=== PATIENT | male | born 1925 | race Caucasian/White ===

== ENCOUNTER 2017-07-14 14:20 | Inpatient (IN) | payer OTHER ==
[~2017-07-14] VITALS: Ht 175.3 cm; Wt 79.3 kg
[2017-07-14] MEDS ORDERED: SODIUM CHLORIDE 0.9% 1000ML 1,000 ML IV STA (14:35)
[2017-07-14] MEDS ORDERED: OPTIRAY 320 IV PRN (14:45)
[2017-07-14 14:58] LABS: BASO % 0.1 %; BASO ABS # 0.02 K/uL (0-0.2); EOS % 0.3 %; EOS ABS # 0.04 K/uL (0-0.5); HEMATOCRIT 39.7 % (42-52); HEMOGLOBIN 13.3 g/dL (14.0-18.0); IG# 0.08 K/uL (0.00-0.02); LYMPH % 6.5 %; LYMPH ABS # 0.98 K/uL (1.2-3.4); MEAN CORPUSCULAR HEMOGLOBIN 28.5 pg (25-34); MEAN CORPUSCULAR HGB CONC 33.5 g/dl (32-36); MEAN PLATELET VOLUME 9.9 fL (7.4-10.4); MONO % 7.2 %; MONO ABS # 1.08 K/uL (0.11-0.59); NEUT % 85.4 %; NEUT ABS # 12.82 K/uL (1.4-6.5); PLATELET COUNT 337 K/uL (130-400); RED CELL DISTRIBUTION WIDTH CV 15.1 % (11.5-14.5); RED CELL DISTRIBUTION WIDTH SD 46.8 fL (36.4-46.3); WHITE BLOOD COUNT 15.02 K/uL (4.8-10.8)
[2017-07-14 15:17] LABS: ALBUMIN 2.5 gm/dl (3.4-5.0); ALT/SGPT 16 U/L (12-78); AST/SGOT 43 U/L (15-37); BLOOD UREA NITROGEN 27 mg/dl (7-18); CALCIUM 9.5 mg/dl (8.5-10.1); CARBON DIOXIDE 29 mmol/L (21-32); CREATININE 1.41 mg/dl (0.60-1.40); GLUCOSE 110 mg/dl (70-99); LIPASE 54 U/L (73-393); POTASSIUM 4.3 mmol/L (3.5-5.1); SODIUM 134 mmol/L (136-145)
[2017-07-14 15:20] LABS: ALKALINE PHOSPHATASE 134 U/L (45-117); TOTAL PROTEIN 7.6 gm/dl (6.4-8.2)
[2017-07-14] MEDS ORDERED: CETI10CH PO (16:40)
[2017-07-14] MEDS ORDERED: TIOT1SPR INH (16:40)
[2017-07-14] MEDS ORDERED: MELA3TAB PO (16:40)
[2017-07-14] MEDS ORDERED: TRMO2580 TOP (16:40)
[2017-07-14] MEDS ORDERED: [UNRECOGNIZED DRUG - CODE] PO (16:40)
[2017-07-14] MEDS ORDERED: ACET-1693 PO (16:40)
[2017-07-14] MEDS ORDERED: SIMV40TA2 PO (16:40)
[2017-07-14] MEDS ORDERED: SYMIN160 INH (16:40)
[2017-07-14] MEDS ORDERED: CALC500C70 PO (16:40)
[2017-07-14] MEDS ORDERED: ISOS60TA25 PO (16:40)
[2017-07-14] MEDS ORDERED: CEPH500C2 PO (16:40)
[2017-07-14] MEDS ORDERED: ESCI10TA17 PO (16:40)
[2017-07-14] MEDS ORDERED: CHOL100027 PO (16:40)
[2017-07-14] MEDS ORDERED: ATEN-173 PO (16:40)
[2017-07-14] MEDS ORDERED: PRLSR20 PO (16:40)
[2017-07-14] MEDS ORDERED: HYDCR25 TOP (16:40)
[2017-07-14] MEDS ORDERED: CARB1SOL8 OT (16:40)
--- NOTE | 2017-07-14 17:28 | Urology Consultation ---
History General Date of Service: Jul 14, 2017. Primary Care Physician: No Doctor, Assigned Pt seen a urologist before?: No History of Present Illness 89-year-old gentleman presents to the ER with abdominal pain and nausea and vomiting Denies significant voiding dysfunction at baseline On arrival, he had a bladder scan for greater than 650 cc pinpointed his pain to the suprapubic region After arrival in the ER, he has been unable to can void ER staff attempt catheter placement without success 5 Initial resistance was described as near the tip of the penis Laboratory Labs were reviewed and are within normal limits unless listed below. Labs are available in the chart and at [facility] Past History BPH, depression, high cholesterol, hypertension, other Past Surgical History: other Social History Hx Tobacco Use In Past Year?: No Allergies Coded Allergies: No Known Allergies (Unverified , 12/21/15) Medications Home Medications: Home Meds and Scripts Medications Dose Route/Sig Max Daily Dose Days Date Category Hydrocortisone 90 Appln/30 Gm Cr 1 Appln TOP DAILY 7 07/14/17 Reported Symbicort 160/4.5 Inhaler (Budesonide/Formoterol Fumarate) Aero 1 Puffs INH BID 07/14/17 Reported Tylenol (Acetaminophen) 325 Mg Tab 650 Mg PO PRN 07/14/17 Reported Keflex (Cephalexin Monohydrate) 500 Mg Cap 500 Mg PO BID 07/14/17 Reported Triamcinolone Acet 0.025% (Triamcinolone Acetonide (Topic) 0.025 % Oin 1 Appln TOP BID PRN 07/14/17 Reported Spiriva Respimat (Tiotropium [place]) 2.5 Mcg/Act Spr 2 Puff INH DAILY 07/14/17 Reported Zocor (Simvastatin) 40 Mg Tab 20 Mg PO QPM 07/14/17 Reported Prilosec (Omeprazole) 20 Mg Capcr 20 Mg PO BID 07/14/17 Reported Ensure Clear (Nutritional Supplements) 1 Liq Liq 1 Can PO BID 07/14/17 Reported Melatonin 3 Mg Tab 9 Mg PO QPM 07/14/17 Reported Imdur Ext Rel (Isosorbide Mononitrate) 60 Mg Ertab 30 Mg PO QAM 07/14/17 Reported Lexapro (Escitalopram Oxalate) 10 Mg Tab 10 Mg PO DAILY 07/14/17 Reported Vitamin D 1000 Unit (Cholecalciferol) 1,000 Unit Cap 1,000 Inter.unit PO DAILY 07/14/17 Reported Cetirizine Hcl 10 Mg Chw 10 Mg PO DAILY 07/14/17 Reported Debrox (Carbamide Peroxide (Otic)) 6.5 % Prema 5 Drops OT HS 07/14/17 Reported Os-Tu 500 Plus D (Calcium/Vitamin D) Tab 1 Tab PO DAILY 07/14/17 Reported Tenormin (Atenolol) 25 Mg Tab 25 Mg PO DAILY 07/14/17 Reported Inpatient Medications: Current Inpatient Medications Medications (Trade) Dose Ordered Sig/Micaela Route Start Time Stop Time Status Last Admin Dose Admin Ioversol (Optiray 320) 100 ml UD PRN IV 07/14/17 14:45 07/18/17 14:44 Review of Systems Review of Systems Constitutional: No see HPI, No fever, No chills, No frequent headaches, No weight loss, No problem reported Eyes: No see HPI, No blurred vision, No double vision, No eye pain, No loss of night vision, No problem reported Neurological: No see HPI, No dizzy, No passing out, No numbness/tingling, No seizures, No problem reported Endocrine: No see HPI, No excessive thirst, No too hot, No too cold, No tired/ sluggish, No problem reported Gastrointestinal: + abdominal pain Cardiovascular: No see HPI, No heart murmur, No chest pain, No angina, No irregular heartbeat, No palpitations, No swelling ankles/feet, No problem reported Respiratory: No see HPI, No shortness of breath, No wheezing, No coughing up blood, No chronic cough, No problem reported Skin: No see HPI, No rash, No boils, No dry skin, No problem reported Musculoskeletal: No see HPI, No joint pain, No neck pain, No back pain, No arthritis, No problem reported Blood / Lymphatic: No see HPI, No bleed easily, No bruise easily, No swollen glands, No problem reported Ears / Nose / Throat: No see HPI, No hearing loss, No sinus, No hoarse voice, No sore throat, No problem reported Psychologic / Mental: No see HPI, No nervous, No trouble remembering, No difficulty sleeping, No problem reported Male : + problem reported All Other Systems: Reviewed and Negative Physical Exam Vital Signs: Vital Signs Past 12 Hours Date Time Temp Pulse Resp B/P (MAP) Pulse Ox O2 Delivery O2 Flow Rate FiO2 07/14/17 17:10 68 18 156/63 99 Room Air 07/14/17 16:00 69 138/77 100 Room Air 07/14/17 15:35 61 16 131/54 98 Room Air 07/14/17 14:22 36.8 62 20 123/55 97 Room Air Physical Exam: General Appearance: no apparent distress Eyes: bilateral eyes pertinent finding (Patient blind) ENT: hearing grossly normal Neck: no adenopathy Respiratory/Chest: no respiratory distress, no accessory muscle use Cardiovascular: no edema Gastrointestinal: Bladder: palpable (Palpably distended bladder, tender to palpation), tender Renal: normal renal Hernia: absent hernia Genitourinary - Male: Urethral Meatus: normal urethral meatus Extremities: no pedal edema, no calf tenderness Neurologic/Psychiatric: alert Skin: warm/dry Lymphatic: no adenopathy Assessment & Plan Assessment & Plan Called to the ER after difficult Smith placement Nursing staff reports 5 trials prior to contacting me Upon arrival, I prepped the patient with Betadine and performed a sterile attempted catheterization Assistance was felt near the area of the prostate Attempted an 18 Finnish coud without success Then attempted a 5 Finnish open-ended catheter again without success At that time I aborted further blind passage attempts, and I converted to flexible cystoscopy. Flexible cystoscope was introduced at the urethral meatus, he was noted to have a striated appearance of the urethral mucosa suggestive of false passage beginning approximately 1 cm from the urethral meatus. There was no clear true lumen visible. At the end of this passage, there was a blind end with 2 punctate openings. I attempted to cannulate each of these with a sensor wire without success Additionally probed all the flaps on the anterior lateral and posterior surface of the wound appear to be than true urethra. After numerous attempts without success, I aborted this effort. I will plan to take him to the operating room for cystoscopy under anesthesia possible dilation possible DVIU possible SP tube placement Discussed the possibilities with the patient, consent was on the chart He is due to had a CT as part of his emergency room evaluation, presuming that his pain is simply from urinary retention, hopefully he will get immediate relief of his pain once we can drain his bladder
--- NOTE | 2017-07-14 18:19 | DIAGNOSTIC IMAGING REPORT ---
ABDOMEN AND PELVIS CT WITH IV CONTRAST CT DOSE: 656.92 mGy.cm HISTORY: Generalized abdominal pain and cramping. TECHNIQUE: Multiaxial CT images of the abdomen and pelvis were performed following the use of intravenous contrast. A dose lowering technique was utilized adhering to the principles of ALARA. COMPARISON STUDY: None. FINDINGS: Bilateral calcified pleural plaques. A 1.4 x 1.0 cm nodular density within the base of the lingula. There is also a 2.1 x 2.0 cm nodular density within the base of the right lower lobe. No pneumoperitoneum. No pneumatosis. Bilateral L5 spondylolysis. Multiple scattered patchy areas of sclerosis seen throughout the visualized osseous structures. This is most pronounced within the pelvis and sacrum. 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 The heart is mildly enlarged. Pacemaker wires are present. There is motion artifact throughout the abdomen. No definite hepatic or splenic masses. The adrenal glands are unremarkable. The pancreas is within normal limits. A few bilateral renal cysts with the largest on the right measuring 3.5 cm. There is an ectatic abdominal aorta. Portal/peripancreatic lymphadenopathy. Dominant lymph node measures 4.0 x 2.6 cm. This is located adjacent to the pancreatic head and second portion of the duodenum. The gallbladder appears unremarkable. There is a large heterogeneous mass at the deep pelvis which appears to be contiguous with the posterior aspect of the right prostate gland and obscures/obliterates the seminal vesicles. This mass measures approximately 8.2 x 5.9 cm. This results in mild left displacement of the rectum. There are few perirectal/presacral enlarged lymph nodes. These measure up to 2 cm and are consistent with metastatic disease. The prostate gland is enlarged measuring 6 cm in transverse diameter. Extensive calcification within the prostate gland. The bladder is severely distended and contains a few punctate foci of gas. Multiple punctate foci of gas within the periurethral location throughout the penis. This is consistent with urethral injury, likely due to prior catheter placement. There is associated moderate bilateral hydroureteronephrosis likely due to the bladder outlet obstruction from the enlarged prostate/pelvic mass. Mild bilateral perirectal edema due to the chronic obstruction. No definite bowel wall thickening or obstruction. IMPRESSION: 1. A large heterogeneous mass within the deep pelvis which is contiguous with the right posterior prostate gland and obscures/obliterates the seminal vesicles. This likely represents a prostate malignancy. There are few enlarged perirectal/presacral and periportal lymph nodes consistent with metastatic disease. 2. Multiple osteoblastic lesion seen throughout the visualized osseous structures consistent with metastatic disease. 3. There are 2 nodules within the lung bases at described above. This may also represent metastatic disease. 4. The large mass within the deep pelvis results in the apparent bladder outlet obstruction with associated bilateral hydronephrosis. 5. Multiple punctate foci of gas within the periurethral location throughout the penis. This is consistent with urethral injury, likely due to prior catheter placement. 6. Additional findings as described above. Electronically signed by: Rudy Norwood M.D. 07/14/2017 6:18 PM Dictated Date/Time: 07/14/2017 6:01 PM
[2017-07-14] MEDS ORDERED: ONDANSETRON INJ 2 MG/ML 2 ML VIAL IV STA (18:28)
[2017-07-14] MEDS ORDERED: MoRPHine SULFATE 4 MG/ML 1 ML CARP\\VIAL IV STA (18:28)
--- NOTE | 2017-07-14 19:02 | History and Physical ---
History & Physical Date & Time of Service: Jul 14, 2017 at 19:02 Chief Complaint: Bad Cramps, Vomiting Primary Care Physician: No Doctor, Assigned History of Present Illness Source: patient, family Patient is an 89-year-old male with past medical history of metastatic T-cell lymphoma, basal cell carcinoma, COPD, Symptomatic bradycardia S/P pacemaker, legally blind, GERD, BPH, HLP, Depression and other problems presents with history abdominal pain, nausea and vomiting, inability to urinate. Patient is a poor historian most of the history is obtained from the patient's daughter-in- law and from hospital records. As per the family patient has been complaining of abdominal pain associated with nausea and vomiting since 3 days duration. He states abdominal pain is suprapubic, left and right lower quadrant which is sharp cramping like, nonradiating, 9/10 intensity. Also reports having constipation since yesterday. Patient was having trouble urinating and complained of dysuria since today. Also had nausea and vomiting 4 times today. Patient family informed that patient has been having generalized weakness and he tires easily lately. He lost about 40-50 pounds in last 1 year. She follows with Dr. Natan castro for oncology and [facility] and is being planned to be started on chemotherapy. Denies any history of chest pain, SOB, dizziness, pedal edema, fever, chills, headache, blood in stools, hematuria. Past Medical/Surgical History Medical Problems: (1) Skin lesion of right lower limb Surgical Problems: (1) S/P hernia surgery Family History Brother:Prostate cancer Social History Smoking Status: Current Every Day Smoker Alcohol Use: none Drug Use: none Allergies Coded Allergies: No Known Allergies (Unverified , 12/21/15) Home Medications Scheduled Acetaminophen Tab (Tylenol), 650 MG PO PRN Atenolol (Tenormin), 25 MG PO DAILY Budesonide/Formoterol Fumarate (Symbicort 160/4.5 Inhaler ), 1 PUFFS INH BID Calcium/Vitamin D (Os-Tu 500 Plus D), 1 TAB PO DAILY Carbamide Peroxide (Otic) (Debrox), 5 DROPS OT HS Cephalexin Monohydrate (Keflex), 500 MG PO BID Cetirizine Hcl (Cetirizine Hcl), 10 MG PO DAILY Cholecalciferol (Vitamin D 1000 Unit), 1,000 INTER.UNIT PO DAILY Escitalopram (Lexapro), 10 MG PO DAILY Hydrocortisone (Hydrocortisone), 1 APPLN TOP DAILY Isosorbide Mononitrate Ext Rel (Imdur Ext Rel), 30 MG PO QAM Melatonin (Melatonin), 9 MG PO QPM Nutritional Supplements (Ensure Clear), 1 CAN PO BID Omeprazole (Prilosec), 20 MG PO BID Simvastatin (Zocor), 20 MG PO QPM Tiotropium [place] (Spiriva Respimat), 2 PUFF INH DAILY Scheduled PRN Triamcinolone Acetonide (Topic (Triamcinolone Acet 0.025%), 1 APPLN TOP BID PRN for ITCHY AREAS SCALP Review of Systems See HPI for pertinent positives & negatives. A total of 10 systems reviewed and were otherwise negative. Physical Exam Vital Signs Date Time Temp Pulse Resp B/P (MAP) Pulse Ox O2 Delivery O2 Flow Rate FiO2 07/14/17 18:22 69 16 160/67 95 Room Air 07/14/17 17:10 68 18 156/63 99 Room Air 07/14/17 16:00 69 138/77 100 Room Air 07/14/17 15:35 61 16 131/54 98 Room Air 07/14/17 14:22 36.8 62 20 123/55 97 Room Air General Appearance: no apparent distress, + thin, + pertinent finding ( Chronically ill-appearing) Head: normocephalic, atraumatic Eyes: normal inspection, PERRL, EOMI, sclerae normal, + pertinent finding ( Legally blind right greater than left) ENT: normal ENT inspection, + pertinent finding (Decreased hearing, uses hearing aids) Neck: supple, trachea midline Respiratory/Chest: chest non-tender, no respiratory distress, no accessory muscle use, + decreased breath sounds, + wheezing Cardiovascular: regular rate, rhythm, no edema, no murmur, + pertinent finding (Pacemaker on left side of the chest) Abdomen/GI: normal bowel sounds, soft, + tenderness (Suprapubic region, RLQ and LLQ) Back: normal inspection Extremities/Musculoskelatal: normal inspection, no pedal edema Neurologic/Psych: 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 II-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9 7.4-10.4 fL Neutrophils (%) (Auto) 85.4 % Lymphocytes (%) (Auto) 6.5 % Monocytes (%) (Auto) 7.2 % Eosinophils (%) (Auto) 0.3 % Basophils (%) (Auto) 0.1 % Neutrophils # (Auto) 12.82 1.4-6.5 K/uL Lymphocytes # (Auto) 0.98 1.2-3.4 K/uL Monocytes # (Auto) 1.08 0.11-0.59 K/uL Eosinophils # (Auto) 0.04 0-0.5 K/uL Basophils # (Auto) 0.02 0-0.2 K/uL RDW Standard Deviation 46.8 36.4-46.3 fL RDW Coefficient of Variation 15.1 11.5-14.5 % Immature Granulocyte % (Auto) 0.5 % Immature Granulocyte # (Auto) 0.08 0.00-0.02 K/uL Sodium Level 134 136-145 mmol/L Potassium Level 4.3 3.5-5.1 mmol/L Chloride Level 98 98-107 mmol/L Carbon Dioxide Level 29 21-32 mmol/L Anion Gap 8.0 3-11 mmol/L Blood Urea Nitrogen 27 7-18 mg/dl Creatinine 1.41 0.60-1.40 mg/dl Estimated GFR () 50.8 Estimated GFR (Non- 43.9 BUN/Creatinine Ratio 19.2 10-20 Random Glucose 110 70-99 mg/dl Calcium Level 9.5 8.5-10.1 mg/dl Total Bilirubin 0.8 0.2-1 mg/dl Direct Bilirubin 0.3 0-0.2 mg/dl Aspartate Amino Transf (AST/SGOT) 43 15-37 U/L Alanine Aminotransferase (ALT/SGPT) 16 12-78 U/L Alkaline Phosphatase 134 45-117 U/L Total Protein 7.6 6.4-8.2 gm/dl Albumin 2.5 3.4-5.0 gm/dl Lipase 54 73-393 U/L Diagnostic Radiology CT ABD: 1. A large heterogeneous mass within the deep pelvis which is contiguous with the right posterior prostate gland and obscures/obliterates the seminal vesicles. This likely represents a prostate malignancy. There are few enlarged perirectal/presacral and periportal lymph nodes consistent with metastatic disease. 2. Multiple osteoblastic lesion seen throughout the visualized osseous structures consistent with metastatic disease. 3. There are 2 nodules within the lung bases at described above. This may also represent metastatic disease. 4. The large mass within the deep pelvis results in the apparent bladder outlet obstruction with associated bilateral hydronephrosis. 5. Multiple punctate foci of gas within the periurethral location throughout the penis. This is consistent with urethral injury, likely due to prior catheter placement. 6. Additional findings as described above. Impression Assessment and Plan Diffuse Metastatic disease: Obstructive uropathy: CT ABD:bladder outlet obstruction with associated bilateral hydronephrosis and findings suggestive of metastatic disease Likely prostate malignancy: Admit in Tele Planned for suprapubic catheter placement Monitor renal function, Cr slightly increased from baseline pain control Urology consulted Metastatic T-cell lymphoma Basal cell carcinoma Planned for surgery for BCC Planned to be started on chemotherapy for T-cell lymphoma Follows with oncology in [place] Obtain old records from MD and his Oncologist Palliative care consulted to identify goals of care COPD: Denies SOB, had mild wheezing on exam Started on nebs Continue home inhalers Symptomatic bradycardia S/P pacemaker stable GERD: continue PPI HLP: continue statin Depression Continue Lexapro Skin lesion on back Secondary to scratching per family continue keflex DVT Px: SCDs for now as planned for procedure Code Status: Full Code as per my discussion with patient and family Patient's [id number] requests updates from physicians. Resuscitation Status VTE Prophylaxis Will order VTE Prophylaxis: Yes
[2017-07-14] MEDS ORDERED: ONDANSETRON INJ 2 MG/ML 2 ML VIAL IV PRN ×2 (19:45→21:30)
[2017-07-14] MEDS ORDERED: MoRPHine SULFATE 2 MG/ML CARP IV PRN (19:45)
[2017-07-14] MEDS ORDERED: ALBUT/IPRATROP 3MG/0.5MG NEB 3 ML VIAL INH PRN (19:45)
[2017-07-14] MEDS ORDERED: DOCUSATE SODIUM 100 MG CAP PO PRN (20:15)
--- NOTE | 2017-07-14 20:55 | EMERGENCY ROOM VISIT NOTE ---
History Report prepared by Sosaiblucero: Kayla Cuellar Under the Supervision of: Dr. Richard Carmona D.O. First contact with patient: 14:26 Chief Complaint: VOMITING Stated Complaint: BAD CRAMPS, VOMITING History of Present Illness The patient is an 89 year old male who presents to the Emergency Room with complaints of bilateral lower quadrant abdominal pain since yesterday. He describes the pain as feeling like cramps and rates his discomfort as a 9/10 in severity. He states he was constipated yesterday so he took a laxative, then developed diarrhea. He has not had a bowel movement since yesterday morning. He also complains of dysuria that began earlier today. The patient has been vomiting since this morning and states he has vomited 4 times today so far. He still has his gallbladder but his son believes he has undergone hernia surgery in the past. He denies any testicular pain. Pt denies headache, change in vision , fevers, chest pain, shortness of breath and melena. Source of History: patient Onset: yesterday Position: abdomen (RLQ, LLQ) Symptom Intensity: 9/10 Quality: cramping Timing: other (persistent) Associated Symptoms: + nausea, + vomiting, + diarrhea, + urinary symptoms, No fevers, No headache, No chest pain, No SOB, No melena Review of Systems See HPI for pertinent positives & negatives. A total of 10 systems reviewed and were otherwise negative. Past Medical & Surgical Medical Problems: (1) Metastatic malignant neoplasm to prostate (2) Obstructive uropathy Surgical Problems: (1) S/P hernia surgery Social History Smoking Status: Current Every Day Smoker Alcohol Use: none Drug Use: none Marital Status: Housing Status: lives with family Occupation Status: retired Current/Historical Medications Scheduled Acetaminophen Tab (Tylenol), 650 MG PO PRN Atenolol (Tenormin), 25 MG PO DAILY Budesonide/Formoterol Fumarate (Symbicort 160/4.5 Inhaler ), 1 PUFFS INH BID Calcium/Vitamin D (Os-Tu 500 Plus D), 1 TAB PO DAILY Carbamide Peroxide (Otic) (Debrox), 5 DROPS OT HS Cephalexin Monohydrate (Keflex), 500 MG PO BID Cetirizine Hcl (Cetirizine Hcl), 10 MG PO DAILY Cholecalciferol (Vitamin D 1000 Unit), 1,000 INTER.UNIT PO DAILY Escitalopram (Lexapro), 10 MG PO DAILY Hydrocortisone (Hydrocortisone), 1 APPLN TOP DAILY Isosorbide Mononitrate Ext Rel (Imdur Ext Rel), 30 MG PO QAM Melatonin (Melatonin), 9 MG PO QPM Nutritional Supplements (Ensure Clear), 1 CAN PO BID Omeprazole (Prilosec), 20 MG PO BID Simvastatin (Zocor), 20 MG PO QPM Tiotropium Goodman (Spiriva Respimat), 2 PUFF INH DAILY Scheduled PRN Triamcinolone Acetonide (Topic (Triamcinolone Acet 0.025%), 1 APPLN TOP BID PRN for ITCHY AREAS SCALP Allergies Coded Allergies: No Known Allergies (Unverified , 12/21/15) Physical Exam Vital Signs Date Time Temp Pulse Resp B/P (MAP) Pulse Ox O2 Delivery O2 Flow Rate FiO2 07/14/17 20:06 72 14 126/59 94 07/14/17 19:30 71 16 124/54 93 Room Air 07/14/17 19:00 67 136/57 91 Room Air 07/14/17 18:22 69 16 160/67 95 Room Air 07/14/17 17:10 68 18 156/63 99 Room Air 07/14/17 16:00 69 138/77 100 Room Air 07/14/17 15:35 61 16 131/54 98 Room Air 07/14/17 14:22 36.8 62 20 123/55 97 Room Air Physical Exam GENERAL: Sitting up in bed, alert, holding lower abdomen, well nourished, hard of hearing, non-toxic EYE EXAM: normal conjunctiva. OROPHARYNX: no exudate, no erythema, lips, buccal mucosa, and tongue normal and mucous membranes are moist NECK: supple, no nuchal rigidity, no adenopathy, non-tender LUNGS: Clear to auscultation. Normal chest wall mechanics HEART: no murmurs, S1 normal and S2 normal ABDOMEN: abdomen soft, tender to palpation in suprapubic, normo-active bowel sounds, no masses, no rebound or guarding. : Normal external genitalia, testicles nontender, no masses. BACK: Back is symmetrical on inspection and there is no deformity, no midline tenderness, no CVA tenderness. SKIN: no rashes and no bruising UPPER EXTREMITIES: upper extremities are grossly normal. LOWER EXTREMITIES: No pitting edema. NEURO EXAM: Normal sensorium, cranial nerves II-XII grossly intact, normal speech, no gross weakness of arms, no gross weakness of legs. Medical Decision & Procedures ER Provider Diagnostic Interpretation: A bladder scan shows 600 mL of urine. Radiology results as stated below per my review and the radiologist's interpretation: ABDOMEN AND PELVIS CT WITH IV CONTRAST CT DOSE: 656.92 mGy.cm HISTORY: Generalized abdominal pain and cramping. TECHNIQUE: Multiaxial CT images of the abdomen and pelvis were performed following the use of intravenous contrast. A dose lowering technique was utilized adhering to the principles of ALARA. COMPARISON STUDY: None. FINDINGS: Bilateral calcified pleural plaques. A 1.4 x 1.0 cm nodular density within the base of the lingula. There is also a 2.1 x 2.0 cm nodular density within the base of the right lower lobe. No pneumoperitoneum. No pneumatosis. Bilateral L5 spondylolysis. Multiple scattered patchy areas of sclerosis seen throughout the visualized osseous structures. This is most pronounced within the pelvis and sacrum. 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 The heart is mildly enlarged. Pacemaker wires are present. There is motion artifact throughout the abdomen. No definite hepatic or splenic masses. The adrenal glands are unremarkable. The pancreas is within normal limits. A few bilateral renal cysts with the largest on the right measuring 3.5 cm. There is an ectatic abdominal aorta. Portal/peripancreatic lymphadenopathy. Dominant lymph node measures 4.0 x 2.6 cm. This is located adjacent to the pancreatic head and second portion of the duodenum. The gallbladder appears unremarkable. There is a large heterogeneous mass at the deep pelvis which appears to be contiguous with the posterior aspect of the right prostate gland and obscures/obliterates the seminal vesicles. This mass measures approximately 8.2 x 5.9 cm. This results in mild left displacement of the rectum. There are few perirectal/presacral enlarged lymph nodes. These measure up to 2 cm and are consistent with metastatic disease. The prostate gland is enlarged measuring 6 cm in transverse diameter. Extensive calcification within the prostate gland. The bladder is severely distended and contains a few punctate foci of gas. Multiple punctate foci of gas within the periurethral location throughout the penis. This is consistent with urethral injury, likely due to prior catheter placement. There is associated moderate bilateral hydroureteronephrosis likely due to the bladder outlet obstruction from the enlarged prostate/pelvic mass. Mild bilateral perirectal edema due to the chronic obstruction. No definite bowel wall thickening or obstruction. IMPRESSION: 1. A large heterogeneous mass within the deep pelvis which is contiguous with the right posterior prostate gland and obscures/obliterates the seminal vesicles. This likely represents a prostate malignancy. There are few enlarged perirectal/presacral and periportal lymph nodes consistent with metastatic disease. 2. Multiple osteoblastic lesion seen throughout the visualized osseous structures consistent with metastatic disease. 3. There are 2 nodules within the lung bases at described above. This may also represent metastatic disease. 4. The large mass within the deep pelvis results in the apparent bladder outlet obstruction with associated bilateral hydronephrosis. 5. Multiple punctate foci of gas within the periurethral location throughout the penis. This is consistent with urethral injury, likely due to prior catheter placement. 6. Additional findings as described above. Electronically signed by: Rudy Norwood M.D. 07/14/2017 6:18 PM Laboratory Results 07/14/17 14:45 Red Blood Count 4.67, Mean Corpuscular Volume 85.0, Mean Corpuscular Hemoglobin 28.5, Mean Corpuscular Hemoglobin Concent 33.5, Mean Platelet Volume 9.9, Neutrophils (%) (Auto) 85.4, Lymphocytes (%) (Auto) 6.5, Monocytes (%) (Auto) 7.2, Eosinophils (%) (Auto) 0.3, Basophils (%) (Auto) 0.1, Neutrophils # (Auto) 12.82, Lymphocytes # (Auto) 0.98, Monocytes # (Auto) 1.08, Eosinophils # (Auto) 0.04, Basophils # (Auto) 0.02 07/14/17 14:45 Test 07/14/17 14:45 White Blood Count 15.02 K/uL (4.8-10.8) Red Blood Count 4.67 M/uL (4.7-6.1) Hemoglobin 13.3 g/dL (14.0-18.0) Hematocrit 39.7 % (42-52) Mean Corpuscular Volume 85.0 fL (80-100) Mean Corpuscular Hemoglobin 28.5 pg (25-34) Mean Corpuscular Hemoglobin Concent 33.5 g/dl (32-36) Platelet Count 337 K/uL (130-400) Mean Platelet Volume 9.9 fL (7.4-10.4) Neutrophils (%) (Auto) 85.4 % Lymphocytes (%) (Auto) 6.5 % Monocytes (%) (Auto) 7.2 % Eosinophils (%) (Auto) 0.3 % Basophils (%) (Auto) 0.1 % Neutrophils # (Auto) 12.82 K/uL (1.4-6.5) Lymphocytes # (Auto) 0.98 K/uL (1.2-3.4) Monocytes # (Auto) 1.08 K/uL (0.11-0.59) Eosinophils # (Auto) 0.04 K/uL (0-0.5) Basophils # (Auto) 0.02 K/uL (0-0.2) RDW Standard Deviation 46.8 fL (36.4-46.3) RDW Coefficient of Variation 15.1 % (11.5-14.5) Immature Granulocyte % (Auto) 0.5 % Immature Granulocyte # (Auto) 0.08 K/uL (0.00-0.02) Anion Gap 8.0 mmol/L (3-11) Estimated GFR () 50.8 Estimated GFR (Non- 43.9 BUN/Creatinine Ratio 19.2 (10-20) Calcium Level 9.5 mg/dl (8.5-10.1) Total Bilirubin 0.8 mg/dl (0.2-1) Direct Bilirubin 0.3 mg/dl (0-0.2) Aspartate Amino Transf (AST/SGOT) 43 U/L (15-37) Alanine Aminotransferase (ALT/SGPT) 16 U/L (12-78) Alkaline Phosphatase 134 U/L (45-117) Total Protein 7.6 gm/dl (6.4-8.2) Albumin 2.5 gm/dl (3.4-5.0) Lipase 54 U/L (73-393) Laboratory results per my review. Medications Administered Medications (Trade) Dose Ordered Sig/Micaela Route Start Time Stop Time Status Last Admin Dose Admin Sodium Chloride 1,000 ml @ 999 mls/hr Q1H1M STAT IV 07/14/17 14:35 07/14/17 15:35 DC 07/14/17 15:35 999 MLS/HR Morphine Sulfate (MoRPHine SULFATE INJ) 4 mg NOW STAT IV 07/14/17 18:28 4 18:29 DC 07/14/17 18:35 4 MG Ondansetron HCl (Zofran Inj) 4 mg NOW STAT IV 07/14/17 18:28 418 18:29 DC 07/14/17 18:35 4 MG ED Course ED COURSE: Vital signs were reviewed and showed normal vital signs. The patients medical record was reviewed The above diagnostic studies were performed and reviewed. ED treatments and interventions as stated above. 1429: The patient was evaluated in room A9. A complete history and physical examination was performed. 1435: NSS 1000 ml @ 999 mls/hr IV. 1605: Nursing has tried [address] a Smith catheter in the patient. They have been unsuccessful. 1613: I discussed the patients case with Dr. Lciona, [facility] U[facility]. The patient will be further evaluated. 1620: I spoke with Dr. Licona. He has been unable to get the Smith in the patient and is going to take him to the OR when it opens up. 1622: Upon reevaluation, the patient is resting. I discussed my findings with the patient and his family and they understand and agree with the treatment plan. 1828: Zofran 4 mg IV, Morphine Sulfate 4 mg IV. 1830: I spoke with Dr. Licona. He recommends a suprapubic catheter and would like the patient to be further evaluated by the hospital medicine team. 1901: I discussed the patients case with Dr. Rouse, [facility] Hospitalist. The patient will be further evaluated. Based on the patients age, coexisting illnesses, exam and lab findings the decision to treat as an inpatient was made. The patient remained stable while under my care. The patient will be evaluated for further management. Medical Decision Differential diagnoses includes but is not limited to gastritis, peptic ulcer disease, GERD, gallbladder disease, pancreatitis, small bowel obstruction, acute coronary syndrome, pericarditis, ischemic bowel, irritable bowel disease, irritable bowel syndrome, appendicitis, diverticulitis, malignancy, hernia, urinary tract infection, torsion, perforation, trauma, infectious. Patient is an 89-year-old male that presents to ER for pain in the lower belly associated with some urinary difficulty. On exam he does have diffuse tenderness in the lower abdomen. Labs were obtained and show a leukocytosis of 15,000. BMP along with LFTs and lipase is unremarkable. Bladder scan was obtained and showed [address] the order for Smith. Received a phone call after nursing tried 3 attempts were unsuccessful. At this time called urology. They were unsuccessful in their attempts as well. CT was obtained and did show bladder outlet obstruction with air in the penis from likely traumatic insertion of Smith. Discuss with Dr. Licona following CT and at this point he recommended admission for suprapubic catheter which she will place tonight and workup of prostate cancer. Medication Reconcilliation Current Medication List: was personally reviewed by me Blood Pressure Screening Patient's blood pressure: Elevated blood pressure Blood pressure disposition: Elevated BP felt to be situational Consults Time Called: 161 Consulting Physician: Dr. Licona, [facility] Returned Call: 161 I discussed the patients case with Dr. Licona, [facility]. The patient will be further evaluated. Additional Consults: Time Called: 183 Consulted Physician: Fito Rosario Hospitalist Returned Call: [phone] Additional Comments: [facility] The patient will be further evaluated. Impression Primary Impression: Obstructive uropathy Additional Impression: Metastatic malignant neoplasm to prostate Scribe Attestation The scribe's documentation has been prepared under my direction and personally reviewed by me in its entirety. I confirm that the note above accurately reflects all work, treatment, procedures, and medical decision making performed by me. Departure Information Dispostion Being Evaluated By Surgeon Referrals No Doctor, Assigned (PCP) Patient Instructions My [facility] Health Problem Qualifiers
[2017-07-14] MEDS ORDERED: MELATONIN 9 MG PO SCH (21:00)
[2017-07-14] MEDS: ALBUT/IPRATROP 3MG/0.5MG NEB 3 ML VIAL INH SCH (21:09)
[2017-07-14] MEDS ORDERED: FENTANYL CITRATE INJ 50 MCG/1 ML 2 ML VIAL ONE (21:23)
[2017-07-14] MEDS ORDERED: PROPOFOL IV EMULSION 10 MG/ML 20 ML VIAL IV ONE (21:23)
[2017-07-14] MEDS ORDERED: HYDROmorphone INJ 2 MG/ML SYR/VIAL IV PRN (21:30)
[2017-07-14] MEDS ORDERED: FENTANYL CITRATE INJ 50 MCG/1 ML 2 ML VIAL IV PRN (21:30)
[2017-07-14] MEDS ORDERED: EpHEDrine SULFATE INJ 50 MG/ML AMP IV PRN (21:30)
[2017-07-14] MEDS ORDERED: ATROPINE SULFATE 0.1 MG/ML 5ML SYR IV PRN (21:30)
[2017-07-14] MEDS ORDERED: BUPIVACAINE 0.5 % 5 MG/1 ML MPF 30ML VIAL ONE (21:45)
--- NOTE | 2017-07-14 22:07 | [facility] Post Operative Brief Note ---
Immediate Operative Summary Operative Date Jul 14, 2017. Pre-Operative Diagnosis urinary retention, suspected prostate cancer Post-Operative Diagnosis urinary retention, suspected prostate cancer Procedure(s) Performed open suprapubic cystotomy (18F catheter) Surgeon Otis Licona Shift Mechanic Surgeon(s) none Estimated Blood Loss 0cc Findings Consistent with Post-Op Diagnosis Specimens none Drains 18F suprapubic tube Anesthesia Type MAC Complication(s) none Disposition Disposition: Recovery Room / PACU
--- NOTE | 2017-07-14 22:14 | [facility] Operative Report ---
Operative Report Operative Date Jul 14, 2017. Pre-Operative Diagnosis urinary retention, suspected prostate cancer Post-Operative Diagnosis urinary retention, suspected prostate cancer Procedure(s) Performed open suprapubic cystotomy (18F catheter) Surgeon Otis Licona Tie Loader Surgeon(s) none Estimated Blood Loss 0cc Specimens none Drains 18F suprapubic tube Anesthesia Type MAC Complication(s) none Disposition Recovery Room / PACU Description of Procedure The patient was identified in the emergency room, appropriate informed consents reviewed and completed and the patient was subsequently transferred to the operating suite. Upon arrival he received 1 g of Ancef. Adequate sedation was achieved and he was in supine position where he was sterilely prepped and draped in standard fashion. I began the case by marking an area approximately 3 fingerbreadths above the pubic symphysis. He has an easily palpable very distended bladder and based on his prior CT, I feel comfortable with this area was free of any other significant structures. I anesthetized the skin in the midline with half percent Marcaine. Checked a deeper through the muscle layer and fascial layer, and then breana back on the syringe confirming the presence of the bladder. Made a 1 cm skin incision utilizing a 15 blade scalpel and dissected through the superficial tissues down to the fascia. Using a sheathed suprapubic introduction pole, I passed the device through this incision and into the bladder. There was immediate return of clear yellow urine. I withdrew the central aspect of this device, and then passed an 18 German catheter through the working channel and into the bladder. Outer sheath was removed after inflating the balloon. A 2-0 nylon suture was used to suture the catheter in place. There is excellent hemostasis. There was clear urine draining adequately into the SP tube without significant bleeding. He was subsequently reversed from anesthesia and taken to the recovery room in stable condition. There were no complications. I attest to the content of the Intraoperative Record and any orders documented therein. Any exceptions are noted below.
--- NOTE | 2017-07-14 22:25 | Anesthesiology Progress Note ---
Anesthesia Post Op Note Date & Time Jul 14, 2017 at 22:25 Vital Signs Pain Intensity: 0 Vital Signs Past 12 Hours Date Time Temp Pulse Resp B/P (MAP) Pulse Ox O2 Delivery O2 Flow Rate FiO2 07/14/17 20:06 72 14 126/59 94 07/14/17 19:30 71 16 124/54 93 Room Air 07/14/17 19:00 67 136/57 91 Room Air 07/14/17 18:22 69 16 160/67 95 Room Air 07/14/17 17:10 68 18 156/63 99 Room Air 07/14/17 16:00 69 138/77 100 Room Air 07/14/17 15:35 61 16 131/54 98 Room Air 07/14/17 14:22 36.8 62 20 123/55 97 Room Air Notes Mental Status: alert / awake / arousable, participated in evaluation Pt Amnestic to Procedure: Yes Nausea / Vomiting: adequately controlled Pain: adequately controlled Airway Patency, RR, SpO2: stable & adequate BP & HR: stable & adequate Hydration State: stable & adequate Anesthetic Complications: no major complications apparent
[2017-07-14] MEDS ORDERED: SODIUM CHLORIDE 0.9% 1000ML 500 ML IV ONE (23:00)
[2017-07-14 23:01] VITALS: BP 121/51; PULSE 60; TEMP 37.1; O2SAT 99
[2017-07-14 23:08] VITALS: O2SAT 94; Ht 175.3 cm; Wt 79.3 kg
[2017-07-14 23:15] VITALS: BP 107/42; PULSE 61; O2SAT 98
[2017-07-14 23:35] VITALS: BP 107/41; PULSE 61; TEMP 36.4; O2SAT 97
[2017-07-14 23:45] VITALS: BP 103/41; PULSE 61; O2SAT 98
[2017-07-14 23:51] VITALS: BP 103/41; PULSE 63; TEMP 36.6; O2SAT 99
[2017-07-15] VITALS (21 sets, daily range): BP systolic 84–121; BP diastolic 37–62; PULSE 60–79; TEMP 36.6–39; O2SAT 92–99
[2017-07-15] MEDS: CEPHALEXIN MONOHYDRATE 500 MG CAP PO SCH ×3 (00:22→20:53)
[2017-07-15] MEDS: PANTOprazole SOD 40 MG TAB PO SCH ×3 (00:22→20:55)
[2017-07-15] MEDS: BUDESONIDE/FORMOTEROL FUMARATE 160/4.5 60 PUFFS/INHALER INH SCH ×3 (00:22→20:53)
[2017-07-15] MEDS: SIMVASTATIN 20 MG TAB PO SCH ×2 (00:23→20:53)
[2017-07-15 06:39] LABS: BASO % 0.2 %; BASO ABS # 0.02 K/uL (0-0.2); EOS % 0.5 %; EOS ABS # 0.06 K/uL (0-0.5); HEMATOCRIT 35.1 % (42-52); HEMOGLOBIN 11.2 g/dL (14.0-18.0); IG# 0.06 K/uL (0.00-0.02); LYMPH % 7.9 %; LYMPH ABS # 1.03 K/uL (1.2-3.4); MEAN CORPUSCULAR HEMOGLOBIN 27.5 pg (25-34); MEAN CORPUSCULAR HGB CONC 31.9 g/dl (32-36); MEAN PLATELET VOLUME 10.1 fL (7.4-10.4); MONO % 8.6 %; MONO ABS # 1.12 K/uL (0.11-0.59); NEUT % 82.3 %; PLATELET COUNT 304 K/uL (130-400); RED CELL DISTRIBUTION WIDTH CV 15.1 % (11.5-14.5); RED CELL DISTRIBUTION WIDTH SD 47.8 fL (36.4-46.3); WHITE BLOOD COUNT 12.99 K/uL (4.8-10.8)
[2017-07-15 07:08] LABS: CALCIUM 8.4 mg/dl (8.5-10.1); CREATININE 1.58 mg/dl (0.60-1.40); POTASSIUM 4.3 mmol/L (3.5-5.1)
[2017-07-15] MEDS: ALBUT/IPRATROP 3MG/0.5MG NEB 3 ML VIAL INH SCH ×4 (07:10→19:05)
[2017-07-15] MEDS ORDERED: PNEUMOCOCCAL POLYSACCHARIDES 25 MCG/0.5 ML VIAL/SYR IM. ONE (08:00)
[2017-07-15] MEDS ORDERED: PNEUMOCOCCAL ADMINISTRATION CHARGE ONE (08:00)
--- NOTE | 2017-07-15 09:39 | Progress Note ---
Subjective Date of Service: Jul 15, 2017. Subjective Pt evaluation today including: conversation w/ patient, physical exam, chart review, lab review Voiding: taylor catheter in place (Suprapubic tube) 89-year-old gentleman presented to the emergency room yesterday with lower abdominal pain, subsequently found to have suspected metastatic prostate cancer and urinary retention Efforts for Taylor catheter placement failed in the emergency room, he subsequently had a suprapubic tube inserted in the operating room last evening He reports that his pain has subsided entirely Catheter draining appropriately, clear urine today Labs have not yet improved PSA this morning 91 Review of Systems Constitutional: No see HPI, No fever, No chills, No sweats, No weight loss, No weakness, No fatigue, No problem reported Abdomen: No pain, No nausea Objective Vital Signs Date Time Temp Pulse Resp B/P (MAP) Pulse Ox O2 Delivery O2 Flow Rate FiO2 07/15/17 08:18 37.0 60 16 101/39 (59) 96 07/15/17 07:11 60 18 94 Nasal Cannula 2.0 07/15/17 04:00 Room Air 07/15/17 04:00 39.0 60 16 121/49 (73) 95 Nasal Cannula 2.0 07/15/17 03:00 60 120/43 (68) 07/15/17 02:03 36.6 61 15 97/39 (58) 98 Nasal Cannula 2.0 07/15/17 02:00 60 97/39 (58) 07/15/17 01:30 61 94/41 (58) 07/15/17 01:00 60 15 108/47 (67) 98 Nasal Cannula 2.0 07/15/17 00:30 62 14 116/62 (80) 99 Nasal Cannula 2.0 07/15/17 00:00 61 13 108/44 (65) 99 Nasal Cannula 2.0 07/14/17 23:51 36.6 63 15 103/41 (61) 99 Nasal Cannula 2.0 07/14/17 23:45 61 18 103/41 (61) 98 Nasal Cannula 2.0 07/14/17 23:35 36.4 61 15 107/41 (63) 97 Nasal Cannula 2.0 07/14/17 23:15 61 13 107/42 (63) 98 Nasal Cannula 2.0 07/14/17 23:08 94 Nasal Cannula 2.0 07/14/17 23:01 37.1 60 16 121/51 (74) 99 Nasal Cannula 2.0 07/14/17 22:30 36.2 61 20 146/64 98 Nasal Cannula 2 07/14/17 22:20 61 20 142/62 100 Oxymask 10 07/14/17 22:11 36.5 71 20 152/62 97 Oxymask 10 07/14/17 20:06 72 14 126/59 94 07/14/17 19:30 71 16 124/54 93 Room Air 07/14/17 19:00 67 136/57 91 Room Air 07/14/17 18:22 69 16 160/67 95 Room Air 07/14/17 17:10 68 18 156/63 99 Room Air 07/14/17 16:00 69 138/77 100 Room Air 07/14/17 15:35 61 16 131/54 98 Room Air 07/14/17 14:22 36.8 62 20 123/55 97 Room Air Physical Exam General Appearance: no apparent distress Eyes: normal inspection ENT: hearing grossly normal Neck: no adenopathy Respiratory/Chest: no respiratory distress, no accessory muscle use Cardiovascular: no edema Abdomen: soft (SP site without evidence of bleeding or infection -urine clear) Neurologic/Psychiatric: alert, normal mood/affect, oriented x 3 Skin: warm/dry Lymphatic: no adenopathy Laboratory Results Last 24 Hours Test 07/14/17 14:45 07/15/17 06:16 07/15/17 07:15 White Blood Count 15.02 K/uL 12.99 K/uL Red Blood Count 4.67 M/uL 4.08 M/uL Hemoglobin 13.3 g/dL 11.2 g/dL Hematocrit 39.7 % 35.1 % Mean Corpuscular Volume 85.0 fL 86.0 fL Mean Corpuscular Hemoglobin 28.5 pg 27.5 pg Mean Corpuscular Hemoglobin Concent 33.5 g/dl 31.9 g/dl Platelet Count 337 K/uL 304 K/uL Mean Platelet Volume 9.9 fL 10.1 fL Neutrophils (%) (Auto) 85.4 % 82.3 % Lymphocytes (%) (Auto) 6.5 % 7.9 % Monocytes (%) (Auto) 7.2 % 8.6 % Eosinophils (%) (Auto) 0.3 % 0.5 % Basophils (%) (Auto) 0.1 % 0.2 % Neutrophils # (Auto) 12.82 K/uL 10.70 K/uL Lymphocytes # (Auto) 0.98 K/uL 1.03 K/uL Monocytes # (Auto) 1.08 K/uL 1.12 K/uL Eosinophils # (Auto) 0.04 K/uL 0.06 K/uL Basophils # (Auto) 0.02 K/uL 0.02 K/uL RDW Standard Deviation 46.8 fL 47.8 fL RDW Coefficient of Variation 15.1 % 15.1 % Immature Granulocyte % (Auto) 0.5 % 0.5 % Immature Granulocyte # (Auto) 0.08 K/uL 0.06 K/uL Sodium Level 134 mmol/L 136 mmol/L Potassium Level 4.3 mmol/L 4.3 mmol/L Chloride Level 98 mmol/L 105 mmol/L Carbon Dioxide Level 29 mmol/L 27 mmol/L Anion Gap 8.0 mmol/L 5.0 mmol/L Blood Urea Nitrogen 27 mg/dl 31 mg/dl Creatinine 1.41 mg/dl 1.58 mg/dl Estimated GFR () 50.8 44.3 Estimated GFR (Non- 43.9 38.2 BUN/Creatinine Ratio 19.2 19.7 Random Glucose 110 mg/dl 83 mg/dl Calcium Level 9.5 mg/dl 8.4 mg/dl Total Bilirubin 0.8 mg/dl Direct Bilirubin 0.3 mg/dl Aspartate Amino Transf (AST/SGOT) 43 U/L Alanine Aminotransferase (ALT/SGPT) 16 U/L Alkaline Phosphatase 134 U/L Total Protein 7.6 gm/dl Albumin 2.5 gm/dl Lipase 54 U/L Est Creatinine Clear Calc Drug Dose 31.7 ml/min Magnesium Level 2.1 mg/dl Prostate Specific Antigen 91.500 ng/ml Urine Color YELLOW Urine Appearance CLOUDY Urine pH 5.0 Urine Specific [place] > 1.045 Urine Protein 1+ Urine Glucose (UA) NEG Urine Ketones NEG Urine Occult Blood 3+ Urine Nitrite NEG Urine Bilirubin NEG Urine Urobilinogen NEG Urine Leukocyte Esterase MODERATE Urine WBC (Auto) >30 /hpf Urine RBC (Auto) >30 /hpf Urine Hyaline Casts (Auto) 5-10 /lpf Urine Epithelial Cells (Auto) 10-20 /lpf Urine Bacteria (Auto) NEG Urine Pathogenic Casts 0-3 WBC CASTS /lpf Assessment and Plan Suspected metastatic prostate cancer; urinary retention SP tube placed last evening -okay urine output now If creatinine worsens considerably, there is possibility that he has bilateral upper tract obstruction secondary to his prostate cancer Unfortunately, cystoscopy and stent placement will not be possible -would strongly prefer to manage this conservatively if at all possible Prostate cancer Started bicalutamide this morning Initial dose of Lupron ordered and to be administered tomorrow -1 month to perform Ultimately, we will arrange for follow-up in our [place] office for an SP tube change and subsequent Lupron injection in 1 month's time
[2017-07-15] MEDS: BICALUTAMIDE 50 MG TAB PO SCH (09:48)
[2017-07-15] MEDS: CETIRIZINE HCL 10 MG TAB PO SCH (09:49)
[2017-07-15] MEDS: ESCITALOPRAM OXALATE 10 MG TAB PO SCH (09:49)
[2017-07-15] MEDS: ISOSORBIDE MONONITRATE 30 MG TABCR PO SCH (09:50)
--- NOTE | 2017-07-15 11:12 | Progress Note ---
Medicine Progress Note Date & Time of Visit: Jul 15, 2017 at 10:24. Subjective Pt was seen and examined Lying in bed with no distress Pt said that he feels fine He said that he does not have any pain He had a suprapubic cath place by urology and tolerated procedure well The catheter is draining clear urine Denies any chest pain, palpitation, dizziness and SOB Objective Last 8 Hrs Date Time Temp Pulse Resp B/P (MAP) Pulse Ox O2 Delivery O2 Flow Rate FiO2 07/15/17 08:18 37.0 60 16 101/39 (59) 96 07/15/17 07:11 60 18 94 Nasal Cannula 2.0 07/15/17 04:00 Room Air 07/15/17 04:00 39.0 60 16 121/49 (73) 95 Nasal Cannula 2.0 07/15/17 03:00 60 120/43 (68) Physical Exam: General- No acute distress Head- atraumatic Eyes- PERRL, EOMI ENT- oropharynx clear Neck- supple, no JVD Lungs- clear to auscultation Heart- regular rhythm; no murmur Abdomen- normal bowel sounds, soft Pelvis- Suprapubic cath in placed and draining clear urine Extremities- No calf tenderness Neuro- alert, oriented, PERRL, EOMI Skin- warm & dry Laboratory Results: Last 24 Hours Test 07/14/17 14:45 07/15/17 06:16 07/15/17 07:15 White Blood Count 15.02 K/uL 12.99 K/uL Red Blood Count 4.67 M/uL 4.08 M/uL Hemoglobin 13.3 g/dL 11.2 g/dL Hematocrit 39.7 % 35.1 % Mean Corpuscular Volume 85.0 fL 86.0 fL Mean Corpuscular Hemoglobin 28.5 pg 27.5 pg Mean Corpuscular Hemoglobin Concent 33.5 g/dl 31.9 g/dl Platelet Count 337 K/uL 304 K/uL Mean Platelet Volume 9.9 fL 10.1 fL Neutrophils (%) (Auto) 85.4 % 82.3 % Lymphocytes (%) (Auto) 6.5 % 7.9 % Monocytes (%) (Auto) 7.2 % 8.6 % Eosinophils (%) (Auto) 0.3 % 0.5 % Basophils (%) (Auto) 0.1 % 0.2 % Neutrophils # (Auto) 12.82 K/uL 10.70 K/uL Lymphocytes # (Auto) 0.98 K/uL 1.03 K/uL Monocytes # (Auto) 1.08 K/uL 1.12 K/uL Eosinophils # (Auto) 0.04 K/uL 0.06 K/uL Basophils # (Auto) 0.02 K/uL 0.02 K/uL RDW Standard Deviation 46.8 fL 47.8 fL RDW Coefficient of Variation 15.1 % 15.1 % Immature Granulocyte % (Auto) 0.5 % 0.5 % Immature Granulocyte # (Auto) 0.08 K/uL 0.06 K/uL Sodium Level 134 mmol/L 136 mmol/L Potassium Level 4.3 mmol/L 4.3 mmol/L Chloride Level 98 mmol/L 105 mmol/L Carbon Dioxide Level 29 mmol/L 27 mmol/L Anion Gap 8.0 mmol/L 5.0 mmol/L Blood Urea Nitrogen 27 mg/dl 31 mg/dl Creatinine 1.41 mg/dl 1.58 mg/dl Estimated GFR () 50.8 44.3 Estimated GFR (Non- 43.9 38.2 BUN/Creatinine Ratio 19.2 19.7 Random Glucose 110 mg/dl 83 mg/dl Calcium Level 9.5 mg/dl 8.4 mg/dl Total Bilirubin 0.8 mg/dl Direct Bilirubin 0.3 mg/dl Aspartate Amino Transf (AST/SGOT) 43 U/L Alanine Aminotransferase (ALT/SGPT) 16 U/L Alkaline Phosphatase 134 U/L Total Protein 7.6 gm/dl Albumin 2.5 gm/dl Lipase 54 U/L Est Creatinine Clear Calc Drug Dose 31.7 ml/min Magnesium Level 2.1 mg/dl Prostate Specific Antigen 91.500 ng/ml Urine Color YELLOW Urine Appearance CLOUDY Urine pH 5.0 Urine Specific [place] > 1.045 Urine Protein 1+ Urine Glucose (UA) NEG Urine Ketones NEG Urine Occult Blood 3+ Urine Nitrite NEG Urine Bilirubin NEG Urine Urobilinogen NEG Urine Leukocyte Esterase MODERATE Urine WBC (Auto) >30 /hpf Urine RBC (Auto) >30 /hpf Urine Hyaline Casts (Auto) 5-10 /lpf Urine Epithelial Cells (Auto) 10-20 /lpf Urine Bacteria (Auto) NEG Urine Pathogenic Casts 0-3 WBC CASTS /lpf Date/Time Source Procedure Growth Status 07/15/17 07:15 Urine , Clean Catch Urine Culture Pending Received Assessment & Plan Diffuse Metastatic disease Obstructive uropathy Prostate Cancer CT abd/pelvis showed a large heterogeneous mass within the deep pelvis which is contiguous with the right posterior prostate gland and obscures/obliterates the seminal vesicles The large mass within the deep pelvis results in the apparent bladder outlet obstruction with associated bilateral hydronephrosis. Urology on board S/P suprapubic catheter placement done last night and draining clear urine Creatine remains elevated Continue gentle IVF Denies any pain Continue monitor BMP Will need follow up with urology at the [facility] Prostate Cancer CT abd and pelvis suggests finding consistent with prostate ca PSA 91.5 Pt follows with Oncology Dr. WATERMAN Urology on board Started bicalutamide this morning Initial dose of Lupron ordered and to be administered tomorrow since pharmacy does not have it, then monthly Case discussed with urologist Dr. Licona Metastatic T-cell lymphoma Basal cell carcinoma Planned for surgery for BCC Planned to be started on chemotherapy for T-cell lymphoma Follows with oncology in [place] Obtain old records from [place] and his Oncologist Palliative care consulted to identify goals of care COPD: Denies SOB, had mild wheezing on exam Started on nebs Continue home inhalers Symptomatic bradycardia S/P pacemaker stable GERD: continue PPI HLP: continue statin Depression Continue Lexapro Skin lesion on back Secondary to scratching per family continue Keflex DVT Px: SCDs for now as planned for procedure Code Status Full Code Disposition Will transfer to medical Current Inpatient Medications: Current Inpatient Medications Medications (Trade) Dose Ordered Sig/Micaela Route Start Time Stop Time Status Last Admin Dose Admin Ioversol (Optiray 320) 100 ml UD PRN IV 07/14/17 14:45 07/18/17 14:44 Acetaminophen (Tylenol Tab) 650 mg Q4H PRN PO 07/14/17 19:45 08/13/17 19:44 Ondansetron HCl (Zofran Inj) 4 mg Q6H PRN IV 07/14/17 19:45 08/13/17 19:44 Albuterol/ Ipratropium (Duoneb) 3 ml QIDR INH 07/14/17 20:00 08/13/17 19:59 07/15/17 07:10 3 ML Atenolol (Tenormin Tab) 25 mg DAILY PO 4/15/18 09:00 08/14/17 08:59 Budesonide/ Formoterol Fumarate (Symbicort 160/ 4.5 Inh) 1 puffs BID INH 07/14/17 21:00 08/13/17 20:59 07/15/17 09:50 1 PUFFS Escitalopram Oxalate (Lexapro Tab) 10 mg DAILY PO 07/15/17 09:00 08/14/17 08:59 07/15/17 09:49 10 MG Isosorbide Mononitrate (Imdur Ext Rel Tab) 30 mg QAM PO 07/15/17 09:00 08/14/17 08:59 07/15/17 09:50 30 MG Simvastatin (Zocor Tab) 20 mg QPM PO 07/14/17 21:00 08/13/17 20:59 Cetirizine HCl (zyrTEC TAB) 10 mg DAILY PO 07/15/17 09:00 08/14/17 08:59 07/15/17 09:49 10 MG Pantoprazole Sodium (Protonix Tab) 40 mg BID PO 07/14/17 21:00 08/13/17 20:59 07/15/17 09:49 40 MG Miscellaneous Information (Order Awaiting Action) 1 ea QS N/A 07/15/17 00:00 08/14/17 00:00 07/15/17 08:31 1 EA Albuterol/ Ipratropium (Duoneb) 3 ml Q2H PRN INH 07/14/17 19:45 08/13/17 19:44 Morphine Sulfate (MoRPHine SULFATE INJ) 2 mg Q4H PRN IV 07/14/17 19:45 07/28/17 19:44 Cephalexin Monohydrate (Keflex Cap) 500 mg BID PO 07/14/17 21:00 07/24/17 20:59 07/15/17 09:48 500 MG Bicalutamide (Casodex Tab) 50 mg QAM PO 07/15/17 09:00 08/14/17 08:59 07/15/17 09:48 50 MG Leuprolide Acetate (Lupron Depot Kit) 7.5 mg ONE IM 07/14/17 20:15 08/13/17 20:14 UNV Docusate Sodium (coLACE CAP) 100 mg BID PRN PO 07/14/17 20:15 08/13/17 20:14
[2017-07-15] MEDS: ACETAMINOPHEN 325 MG TAB PO PRN (12:59)
[2017-07-16] VITALS (16 sets, daily range): BP systolic 97–120; BP diastolic 35–52; PULSE 74–93; TEMP 36.7–38.2; O2SAT 93–97
[2017-07-16 06:47] LABS: HEMATOCRIT 31.2 % (42-52); HEMOGLOBIN 10.1 g/dL (14.0-18.0); MEAN CELL VOLUME 86.2 fL (80-100); MEAN CORPUSCULAR HEMOGLOBIN 27.9 pg (25-34); MEAN CORPUSCULAR HGB CONC 32.4 g/dl (32-36); MEAN PLATELET VOLUME 9.4 fL (7.4-10.4); PLATELET COUNT 279 K/uL (130-400); RED CELL DISTRIBUTION WIDTH CV 15.3 % (11.5-14.5); WHITE BLOOD COUNT 9.86 K/uL (4.8-10.8)
[2017-07-16] MEDS: ALBUT/IPRATROP 3MG/0.5MG NEB 3 ML VIAL INH SCH ×4 (07:03→19:08)
[2017-07-16 07:21] LABS: CALCIUM 8.4 mg/dl (8.5-10.1); CREATININE 1.54 mg/dl (0.60-1.40); POTASSIUM 4.2 mmol/L (3.5-5.1)
[2017-07-16] MEDS ORDERED: SODIUM CHLORIDE 0.9% 500ML 500 ML IV SCH (08:30)
[2017-07-16] MEDS: CEPHALEXIN MONOHYDRATE 500 MG CAP PO SCH ×2 (08:39→21:34)
[2017-07-16] MEDS: ESCITALOPRAM OXALATE 10 MG TAB PO SCH (08:39)
[2017-07-16] MEDS: CETIRIZINE HCL 10 MG TAB PO SCH (08:39)
[2017-07-16] MEDS: ISOSORBIDE MONONITRATE 30 MG TABCR PO SCH (08:40)
[2017-07-16] MEDS: PANTOprazole SOD 40 MG TAB PO SCH ×2 (08:40→21:35)
[2017-07-16] MEDS: BUDESONIDE/FORMOTEROL FUMARATE 160/4.5 60 PUFFS/INHALER INH SCH ×2 (08:41→21:34)
[2017-07-16] MEDS: BICALUTAMIDE 50 MG TAB PO SCH (08:42)
--- NOTE | 2017-07-16 08:52 | Clinical Documentation Query ---
EVANGELINA Ulloa : CLINICAL DOCUMENTATION QUERIES QUERY [address] scan of the abdomen read to include the followin. A large heterogeneous mass within the deep pelvis which is contiguous with the right posterior prostate gland and obscures/obliterates the seminal vesicles. This likely represents a prostate malignancy. There are few enlarged perirectal/presacral and periportal lymph nodes consistent with metastatic disease. 2. Multiple osteoblastic lesion seen throughout the visualized osseous structures consistent with metastatic disease. 3. There are 2 nodules within the lung bases at described above. This may also represent metastatic disease. 4. The large mass within the deep pelvis results in the apparent bladder outlet obstruction with associated bilateral hydronephrosis. 5. Multiple punctate foci of gas within the periurethral location throughout the penis. This is consistent with urethral injury, likely due to prior catheter placement. 6. Additional findings as described above. In your clinical opinion is this patient being managed for: ( ) Secondary malignant neoplasm of perirectal/presacral and periportal lymph nodes, secondary bony metastasis of pelvis and sacrum, secondary metastasis of bilateral lung bases ( ) Not Agree ( ) Other explanation of clinical findings (Please Explain) ( ) Unable to determine (Please Define) ( ) Need to Discuss The medical record reflects the following clinical findings, treatment, and risk factors. Clinical Indicators: As above Treatment: Urology consult, SP cath, Bicalutamide, Lupron, obtaining old records, palliative care consult Risk Factors: Age, gender QUERY 2 OF 2 H&P noted "creatinine slightly increased from baseline". Creatinine 1.3 mg/dl on admission and 1.54 mg/dl this a.m. Estimated GFR range of 38-49 ml/min since admission. Please clarify as clinically appropriate. Thank you. In your clinical opinion is this patient being managed for: ( ) Chronic kidney disease, stage 3 ( ) Not Agree ( ) Other explanation of clinical findings (Please Explain) ( ) Unable to determine (Please Define) ( ) Need to Discuss The medical record reflects the following clinical findings, treatment, and risk factors. Clinical Indicators: As above Treatment: IVF, serial chemistries Risk Factors: Age, nausea/vomiting, medications Please clarify and document your clinical opinion in the progress notes and discharge summary. Terms such as "probable", "suspected", "likely", "questionable", "possible", or "still to be ruled out" are acceptable. IF IN AGREEMENT, YOU MUST DOCUMENT ABOVE DIAGNOSTIC STATEMENT IN DAILY PROGRESS NOTES AND DISCHARGE SUMMARY. This document is not part of the patient's record. Thank You, Tavo Mendez RN [phone]
--- NOTE | 2017-07-16 11:10 | Progress Note ---
Subjective Date of Service: Jul 16, 2017. Subjective Pt evaluation today including: conversation w/ patient, chart review, lab review Voiding: taylor catheter in place (SPT tube in place draining clear, yellow urine ) 89 yo male with suspected metastatic prostate cancer. S/p SPT placement. Pt denies pain this morning. C/o nausea, however he did request cookies this morning and is eating them as we speak. Denies vomiting. Review of Systems Constitutional: No fever, No chills Respiratory: No shortness of breath Cardiac: No chest pain Abdomen: + nausea, No pain, No vomiting Male : No hematuria Heme: No abnormal bleeding/bruising Objective Vital Signs Date Time Temp Pulse Resp B/P (MAP) Pulse Ox O2 Delivery O2 Flow Rate FiO2 07/16/17 10:26 75 93 07/16/17 07:29 37.0 77 20 115/50 (71) 95 Room Air 07/16/17 07:05 76 14 94 Nasal Cannula 2.0 07/16/17 04:00 Nasal Cannula 2.0 07/16/17 03:45 37.4 80 20 110/45 (66) 94 Room Air 07/15/17 23:59 Nasal Cannula 2.0 07/15/17 23:48 37.5 79 18 103/62 (76) 93 Room Air 07/15/17 20:59 100/54 (69) 07/15/17 20:00 Room Air 07/15/17 19:31 36.7 76 16 86/37 (53) 92 Room Air 07/15/17 19:05 66 14 96 Nasal Cannula 2.0 07/15/17 16:00 94 Room Air 07/15/17 15:53 36.7 70 20 84/38 (53) 96 Room Air 92/39 (56) 07/15/17 15:01 74 18 92 Nasal Cannula 2.0 07/15/17 12:04 37.0 63 16 95/39 (57) 97 Nasal Cannula 07/15/17 12:00 94 Room Air 07/15/17 11:37 68 18 93 Nasal Cannula 2.0 Physical Exam General Appearance: no apparent distress Eyes: normal inspection ENT: hearing grossly normal Neck: no JVD Respiratory/Chest: no respiratory distress, no accessory muscle use Cardiovascular: no JVD Abdomen: + pertinent finding (SPT intact draining clear, yellow urine ) Extremities: normal range of motion Neurologic/Psychiatric: alert, normal mood/affect, oriented x 3 Skin: normal color Laboratory Results Last 24 Hours Test 07/16/17 06:32 White Blood Count 9.86 K/uL Red Blood Count 3.62 M/uL Hemoglobin 10.1 g/dL Hematocrit 31.2 % Mean Corpuscular Volume 86.2 fL Mean Corpuscular Hemoglobin 27.9 pg Mean Corpuscular Hemoglobin Concent 32.4 g/dl RDW Standard Deviation 48.0 fL RDW Coefficient of Variation 15.3 % Platelet Count 279 K/uL Mean Platelet Volume 9.4 fL Sodium Level 135 mmol/L Potassium Level 4.2 mmol/L Chloride Level 105 mmol/L Carbon Dioxide Level 28 mmol/L Anion Gap 2.0 mmol/L Blood Urea Nitrogen 36 mg/dl Creatinine 1.54 mg/dl Est Creatinine Clear Calc Drug Dose 32.5 ml/min Estimated GFR () 45.7 Estimated GFR (Non- 39.4 BUN/Creatinine Ratio 23.1 Random Glucose 112 mg/dl Calcium Level 8.4 mg/dl Assessment and Plan A/P: Urinary retention; suspected metastatic prostate cancer AFVSS. SPT intact, draining clear, yellow urine. Lupron injection pending today. Continue Casodex indefinitely for now. Will arrange for outpatient f/u with Dr. Licona in 1 month at our [place] office for SPT change and repeat Lupron injection. No further management at this time. Recall PRN issues. Thanks for allowing us to participate in this pt's care.
[2017-07-16] MEDS ORDERED: LEUPROLIDE ACETATE 7.5 MG KIT IM SCH (12:00)
--- NOTE | 2017-07-16 19:34 | Progress Note ---
Medicine Progress Note Date & Time of Visit: Jul 16, 2017 at 19:18. Subjective Pt was seen and examined Lying in bed comfortable with no distress Pt said that he feels fine He said that he does not have any pain SPT catheter is draining clears urine Spoke to oncologist Dr. Waterman in [place] and updated him about patient new finding He asked to fax him his chart Patient denies any chest pain, palpitation, dizziness and SOB Objective Last 8 Hrs Date Time Temp Pulse Resp B/P (MAP) Pulse Ox O2 Delivery O2 Flow Rate FiO2 07/16/17 19:08 82 18 95 Room Air 07/16/17 16:12 36.7 92 22 105/35 (58) 95 Room Air 07/16/17 16:00 96 Nasal Cannula 2.0 07/16/17 15:23 77 16 95 Room Air 07/16/17 12:00 94 Nasal Cannula 2.0 07/16/17 11:23 37.0 76 18 109/43 (65) 96 Room Air Physical Exam: General- No acute distress Head- atraumatic Eyes- PERRL, EOMI ENT- oropharynx clear Neck- supple, no JVD Lungs- clear to auscultation Heart- regular rhythm; no murmur Abdomen- normal bowel sounds, soft Pelvis- Suprapubic cath in placed and draining clear urine Extremities- No calf tenderness Neuro- alert, oriented, PERRL, EOMI Skin- warm & dry Laboratory Results: Last 24 Hours Test 07/16/17 06:32 White Blood Count 9.86 K/uL Red Blood Count 3.62 M/uL Hemoglobin 10.1 g/dL Hematocrit 31.2 % Mean Corpuscular Volume 86.2 fL Mean Corpuscular Hemoglobin 27.9 pg Mean Corpuscular Hemoglobin Concent 32.4 g/dl RDW Standard Deviation 48.0 fL RDW Coefficient of Variation 15.3 % Platelet Count 279 K/uL Mean Platelet Volume 9.4 fL Sodium Level 135 mmol/L Potassium Level 4.2 mmol/L Chloride Level 105 mmol/L Carbon Dioxide Level 28 mmol/L Anion Gap 2.0 mmol/L Blood Urea Nitrogen 36 mg/dl Creatinine 1.54 mg/dl Est Creatinine Clear Calc Drug Dose 32.5 ml/min Estimated GFR () 45.7 Estimated GFR (Non- 39.4 BUN/Creatinine Ratio 23.1 Random Glucose 112 mg/dl Calcium Level 8.4 mg/dl Assessment & Plan Diffuse Metastatic disease Obstructive uropathy Prostate Cancer CT abd/pelvis showed a large heterogeneous mass within the deep pelvis which is contiguous with the right posterior prostate gland and obscures/obliterates the seminal vesicles The large mass within the deep pelvis results in the apparent bladder outlet obstruction with associated bilateral hydronephrosis. Urology on board S/P suprapubic catheter placement and draining clear urine Creatine remains 1.5 Received IVF Denies any pain Continue monitor BMP Follow up with urology at the [facility] in 1 month for SPT change Prostate Cancer CT abd and pelvis suggests finding consistent with prostate ca PSA 91.5 Pt follows with Oncology Dr. WATERMAN Urology on board Continue bicalutamide daily Initial dose of Lupron given today, next dosein 1 then monthly Case discussed with urologist Dr. Licona Case discussed with Oncology dr. Waterman Pt will need weekly blood work Will fax hospital chart to dr. Waterman once discharge Metastatic T-cell lymphoma Basal cell carcinoma Planned for surgery for BCC Planned to be started on chemotherapy for T-cell lymphoma Follows with oncology in [place] Obtain old records from [place] and his Oncologist Palliative care consulted to identify goals of care COPD: Denies SOB, had mild wheezing on exam Started on nebs Continue home inhalers Symptomatic bradycardia S/P pacemaker stable GERD: continue PPI HLP: continue statin Depression Continue Lexapro Skin lesion on back Secondary to scratching per family continue Keflex DVT Px: SCDs for now as planned for procedure Code Status Full Code Disposition Will transfer to medical Please fax document to Dr. Waterman once discharge ( ) Possible discharge tomorrow once case management completes social disposition. Current Inpatient Medications: Current Inpatient Medications Medications (Trade) Dose Ordered Sig/Micaela Route Start Time Stop Time Status Last Admin Dose Admin Ioversol (Optiray 320) 100 ml UD PRN IV 07/14/17 14:45 07/18/17 14:44 Acetaminophen (Tylenol Tab) 650 mg Q4H PRN PO 07/14/17 19:45 08/13/17 19:44 07/15/17 12:59 650 MG Ondansetron HCl (Zofran Inj) 4 mg Q6H PRN IV 07/14/17 19:45 08/13/17 19:44 Albuterol/ Ipratropium (Duoneb) 3 ml QIDR INH 07/14/17 20:00 08/13/17 19:59 07/16/17 19:08 3 ML Atenolol (Tenormin Tab) 25 mg DAILY PO 07/15/17 09:00 08/14/17 08:59 07/15/17 12:58 25 MG Budesonide/ Formoterol Fumarate (Symbicort 160/ 4.5 Inh) 1 puffs BID INH 07/14/17 21:00 08/13/17 20:59 07/16/17 08:41 1 PUFFS Escitalopram Oxalate (Lexapro Tab) 10 mg DAILY PO 07/15/17 09:00 08/14/17 08:59 07/16/17 08:39 10 MG Isosorbide Mononitrate (Imdur Ext Rel Tab) 30 mg QAM PO 07/15/17 09:00 08/14/17 08:59 07/16/17 08:40 30 MG Simvastatin (Zocor Tab) 20 mg QPM PO 07/14/17 21:00 08/13/17 20:59 07/15/17 20:53 20 MG Cetirizine HCl (zyrTEC TAB) 10 mg DAILY PO 07/15/17 09:00 08/14/17 08:59 07/16/17 08:39 10 MG Pantoprazole Sodium (Protonix Tab) 40 mg BID PO 07/14/17 21:00 08/13/17 20:59 07/16/17 08:40 40 MG Miscellaneous Information (Order Awaiting Action) 1 ea QS N/A 07/15/17 00:00 08/14/17 00:00 07/15/17 08:31 1 EA Albuterol/ Ipratropium (Duoneb) 3 ml Q2H PRN INH 07/14/17 19:45 08/13/17 19:44 Morphine Sulfate (MoRPHine SULFATE INJ) 2 mg Q4H PRN IV 07/14/17 19:45 07/28/17 19:44 Cephalexin Monohydrate (Keflex Cap) 500 mg BID PO 07/14/17 21:00 07/24/17 20:59 07/16/17 08:39 500 MG Bicalutamide (Casodex Tab) 50 mg QAM PO 07/15/17 09:00 08/14/17 08:59 07/16/17 08:42 50 MG Docusate Sodium (coLACE CAP) 100 mg BID PRN PO 07/14/17 20:15 08/13/17 20:14
[2017-07-16] MEDS: SIMVASTATIN 20 MG TAB PO SCH (21:35)
[2017-07-16] MEDS: ACETAMINOPHEN 325 MG TAB PO PRN (23:49)
[2017-07-17] VITALS (11 sets, daily range): BP systolic 104–130; BP diastolic 52–65; PULSE 67–83; TEMP 36.3–36.9; O2SAT 91–97
[2017-07-17 05:06] LABS: INR 1.1 (0.9-1.1)
[2017-07-17 05:13] LABS: CALCIUM 8.4 mg/dl (8.5-10.1); CREATININE 1.23 mg/dl (0.60-1.40); POTASSIUM 4.1 mmol/L (3.5-5.1)
[2017-07-17] MEDS: ALBUT/IPRATROP 3MG/0.5MG NEB 3 ML VIAL INH SCH ×4 (07:26→19:18)
[2017-07-17] MEDS: ESCITALOPRAM OXALATE 10 MG TAB PO SCH (08:18)
[2017-07-17] MEDS: BUDESONIDE/FORMOTEROL FUMARATE 160/4.5 60 PUFFS/INHALER INH SCH ×2 (08:18→20:14)
[2017-07-17] MEDS: ISOSORBIDE MONONITRATE 30 MG TABCR PO SCH (08:18)
[2017-07-17] MEDS: CEPHALEXIN MONOHYDRATE 500 MG CAP PO SCH ×2 (08:18→20:14)
[2017-07-17] MEDS: CETIRIZINE HCL 10 MG TAB PO SCH (08:18)
[2017-07-17] MEDS: PANTOprazole SOD 40 MG TAB PO SCH ×2 (08:19→20:15)
[2017-07-17] MEDS: BICALUTAMIDE 50 MG TAB PO SCH (08:20)
[2017-07-17] MEDS: ENOXAPARIN 40 MG/0.4 ML SYR SQ SCH (08:21)
--- NOTE | 2017-07-17 11:10 | Palliative Care Consultation ---
Consultation Date of Consultation: Jul 17, 2017. Requesting Physician: Dr Arthur Attending Physician: Dr Duque Reason for Consultation: Address goals of care and CODE STATUS History of Present Illness Met with patient, patient's stepson, and step [id number]. Patient has lived with his stepson and stepdaughter in law in the past, was then living on his own in an apartment, family now looking to have patient move back in with them. Briefly patient is an 89-year-old male who was admitted on 07/14 when he presented with lower abdominal pain, inability to void, and constipation. Patient was found on CT scan to have a very large pelvic tumor suspected to be prostate cancer that was obstructing the bladder, ureters, as well as displacing the rectum. Patient's PSA was 91.5. Patient was recently diagnosed with metastatic T-cell lymphoma he was to start p.o. chemo with his oncologist Dr. Gama in [place]. Patient also has a prior history of multiple basal cell cancers as well as COPD, bradycardia status post pacemaker placement, he is legally blind with only peripheral vision on the left, GERD, BPH, HLD, HTN, and depression. Family also reported a 40-50 pound weight loss over the past year. Patient underwent suprapubic catheter placement to relieve the bladder outlet obstruction. Reviewed scans with family at bedside, family asking appropriate questions. Patient included in discussion. Family asking if radiation is possible to try and shrink the pelvic mass, patient already started on Lupron. Also discussed the possibility of GI obstruction by the tumor, asking if colostomy placement would also be possible to provide comfort. Patient and family stated that patient has always wanted everything done, and at this time will remain a full code. Patient and family are realistic that once all the information is obtained they will consider changing CODE STATUS even to have patient return home with hospice if nothing further can be done. Per 's note information was sent to patient's oncologist Dr. Gama in [place]. Patient's contact is Chely his stepdaughter in law herself phone number is [phone] Patient is seen at the [facility], his PA is Kena at [phone] X 07/05/2004, his nurse at the [facility] is named Adelaida. Past Medical/Surgical History Medical History: Newly diagnosed prostate cancer with large pelvic mass, obstructive neuropathy with bladder outlet obstruction and bilateral hydronephrosis, metastatic T-cell lymphoma, basal cell cancers, COPD, bradycardia status post pacemaker, legally blind with left peripheral vision only, GERD, BPH, HLD, HTN, and depression Surgical History: Suprapubic catheter, pacemaker, hernia repair, surgery for skin cancers. Family History Positive for prostate cancer Social History Smoking Status: Current Every Day Smoker Drug Use: none Marital Status: Housing Status: lives alone (Family making plans for patient to move back in with them) Occupation Status: retired Patient has no children, he has 6 stepchildren, he relies on his stepson and stepdaughter in law for decision-making. Patient is alert and oriented, very sharp mentally, and able to make his own decisions, family is supportive of his decisions. Review of Systems Constitutional: No fever Eyes: No worsening of vision ENT: + hearing loss (Wears hearing aids) Respiratory: No cough Cardiac: No chest pain Abdomen: + pain (At site of suprapubic catheter) Musculoskeletal: No joint pain Male : + problem reported (Bladder outlet obstruction, status post suprapubic catheter) Neurologic: No memory loss, No weakness (Patient is able to get around and perform his own ADLs) Psychiatric: No anxiety Skin: + problem reported (T-cell lymphoma involvement of the skin, pruritus, multiple skin lesions on back, axilla and right scalp) Allergies Coded Allergies: No Known Allergies (Unverified , 12/21/15) Medications Current Inpatient Medications Medications (Trade) Dose Ordered Sig/Micaela Route Start Time Stop Time Status Last Admin Dose Admin Ioversol (Optiray 320) 100 ml UD PRN IV 07/14/17 14:45 07/18/17 14:44 Acetaminophen (Tylenol Tab) 650 mg Q4H PRN PO 07/14/17 19:45 08/13/17 19:44 07/16/17 23:49 650 MG Ondansetron HCl (Zofran Inj) 4 mg Q6H PRN IV 07/14/17 19:45 08/13/17 19:44 Albuterol/ Ipratropium (Duoneb) 3 ml QIDR INH 07/14/17 20:00 08/13/17 19:59 07/17/17 07:26 3 ML Atenolol (Tenormin Tab) 25 mg DAILY PO 07/15/17 09:00 08/14/17 08:59 07/17/17 08:19 25 MG Budesonide/ Formoterol Fumarate (Symbicort 160/ 4.5 Inh) 1 puffs BID INH 07/14/17 21:00 08/13/17 20:59 07/17/17 08:18 1 PUFFS Escitalopram Oxalate (Lexapro Tab) 10 mg DAILY PO 07/15/17 09:00 08/14/17 08:59 07/17/17 08:18 10 MG Isosorbide Mononitrate (Imdur Ext Rel Tab) 30 mg QAM PO 07/15/17 09:00 08/14/17 08:59 07/17/17 08:18 30 MG Simvastatin (Zocor Tab) 20 mg QPM PO 07/14/17 21:00 08/13/17 20:59 07/16/17 21:35 20 MG Cetirizine HCl (zyrTEC TAB) 10 mg DAILY PO 07/15/17 09:00 08/14/17 08:59 07/17/17 08:18 10 MG Pantoprazole Sodium (Protonix Tab) 40 mg BID PO 07/14/17 21:00 08/13/17 20:59 07/17/17 08:19 40 MG Miscellaneous Information (Order Awaiting Action) 1 ea QS N/A 07/15/17 00:00 08/14/17 00:00 07/15/17 08:31 1 EA Albuterol/ Ipratropium (Duoneb) 3 ml Q2H PRN INH 07/14/17 19:45 08/13/17 19:44 Morphine Sulfate (MoRPHine SULFATE INJ) 2 mg Q4H PRN IV 07/14/17 19:45 07/28/17 19:44 Cephalexin Monohydrate (Keflex Cap) 500 mg BID PO 07/14/17 21:00 07/24/17 20:59 07/17/17 08:18 500 MG Bicalutamide (Casodex Tab) 50 mg QAM PO 07/15/17 09:00 08/14/17 08:59 07/17/17 08:20 50 MG Docusate Sodium (coLACE CAP) 100 mg BID PRN PO 07/14/17 20:15 08/13/17 20:14 Enoxaparin Sodium (Lovenox Inj) 40 mg QAM SQ 07/17/17 08:00 08/16/17 08:59 07/17/17 08:21 40 MG Physical Exam Date Time Temp Pulse Resp B/P (MAP) Pulse Ox O2 Delivery O2 Flow Rate FiO2 07/17/17 08:30 Room Air 07/17/17 07:26 72 16 94 Room Air 07/17/17 06:57 36.5 67 16 125/53 (77) 97 Room Air 07/17/17 04:15 36.3 74 16 130/60 (83) 95 Room Air 07/17/17 03:08 36.5 78 16 125/64 (84) 95 Room Air 07/17/17 00:00 Room Air 07/16/17 23:21 38.2 93 18 120/52 (74) 94 Room Air 07/16/17 22:01 37.5 92 20 118/50 (72) 93 Room Air 07/16/17 20:39 37.2 93 18 108/41 (63) 93 Room Air 07/16/17 20:00 95 Nasal Cannula 2.0 07/16/17 19:08 82 18 95 Room Air 07/16/17 16:12 36.7 92 22 105/35 (58) 95 Room Air 07/16/17 16:00 96 Nasal Cannula 2.0 07/16/17 15:23 77 16 95 Room Air 07/16/17 12:00 94 Nasal Cannula 2.0 07/16/17 11:23 37.0 76 18 109/43 (65) 96 Room Air 07/16/17 11:15 74 14 97 Nasal Cannula 2.0 General Appearance: no apparent distress Eyes: + pertinent finding (Patient wearing dark glasses) ENT: + pertinent finding (Hard of hearing even with hearing aids in place) Neck: supple Respiratory: lungs clear, no respiratory distress Cardiovascular: regular rate, rhythm, no edema Abdomen: + tenderness (Over site of suprapubic catheter) Musculoskeletal: normal tone Neurologic/Psychiatric: alert, oriented x 3 Skin: + pertinent finding (Large lesion right scalp, multiple lesions on his back and axilla) Laboratory Results Last 24 Hours Test 07/17/17 04:44 Prothrombin Time 11.8 SECONDS Prothromb Time International Ratio 1.1 Sodium Level 139 mmol/L Potassium Level 4.1 mmol/L Chloride Level 108 mmol/L Carbon Dioxide Level 26 mmol/L Anion Gap 5.0 mmol/L Blood Urea Nitrogen 28 mg/dl Creatinine 1.23 mg/dl Est Creatinine Clear Calc Drug Dose 40.7 ml/min Estimated GFR () 60.0 Estimated GFR (Non- 51.7 BUN/Creatinine Ratio 22.4 Random Glucose 122 mg/dl Calcium Level 8.4 mg/dl Assessment & Plan Palliative Performance Scale: 50 % (1) Palliative care encounter Assessment & Plan: Met with patient and family, patient is to remain a full code at this time. Patient and family will reconsider CODE STATUS once evaluation of possible treatment options is completed (2) Obstructive uropathy Status: Acute Assessment & Plan: Status post suprapubic catheter placement (3) Metastatic malignant neoplasm to prostate Status: Acute Assessment & Plan: Large pelvic mass causing bladder outlet obstruction and displacing rectum. Consider asking GI to evaluate patient's risk of obstruction at the level of the rectum, question if palliative colostomy would be of benefit (4) T-cell lymphoma Status: Acute Assessment & Plan: Patient has not started treatment yet, primary issue is with pruritus, consider adding Benadryl cream for itching or consider lidocaine if Benadryl is not effective. (5) COPD (chronic obstructive pulmonary disease) Status: Chronic Assessment & Plan: Well controlled on his current inhalers Counseling and Coordination Total time spent 70 minutes with greater than 50% of the time spent at bedside with patient and family discussing patient's current condition, possible treatment options, and goals of care.
[2017-07-17] MEDS ORDERED: DiphenhydrAMINE 2%/ZINC 0.1% CREAM 28GM TUBE EXT PRN (17:45)
--- NOTE | 2017-07-17 17:45 | Progress Note ---
Internal Med Progress Note Date of Service: Jul 17, 2017. Provider Documentation: SUBJECTIVE: Denies of any pain or discomfort No fever or chills Agreeable for discharge home tomorrow OBJECTIVE: Vital Signs-as noted below Exam: General- No acute distress Head- atraumatic Eyes- PERRL, EOMI ENT- oropharynx clear Neck- supple, no JVD Lungs- clear to auscultation Heart- regular rhythm; no murmur Abdomen- normal bowel sounds, soft Pelvis- Suprapubic cath in placed and draining clear urine Extremities- No calf tenderness Neuro- alert, oriented, PERRL, EOMI/legally blind Skin- warm & dry Lab data as noted below. ASSESSMENT & PLAN: DIFFUSE METASTATIC DISEASE/PROSTATE CANCER WITH OBSTRUCTIVE UROPATHY CT abd/pelvis showed a large heterogeneous mass within the deep pelvis which is contiguous with the right posterior prostate gland and obscures/obliterates the seminal vesicles The large mass within the deep pelvis results in the apparent bladder outlet obstruction with associated bilateral hydronephrosis. Urology on board S/P suprapubic catheter placement and draining clear urine Creatine remains 1.5 Denies any pain Very poor prognosis Follow up with urology at the [facility] in 1 month for suprapubic catheter change METASTATIC PROSTATE CANCER CT abd and pelvis suggests finding consistent with prostate ca PSA 91.5 Pt follows with Oncology Dr. WATERMAN Urology on board Continue bicalutamide/Casodex daily Initial dose of Lupron given in hospital Will need once a month dose Urology following out pt follow up with Urology in a month Case discussed with patient's outpatient oncology oncology dr. Waterman Pt will need weekly blood work-arrangements made for home health visiting nurse Will fax hospital chart to dr. Waterman once discharge METASTATIC T-CELL LYMPHOMA Basal cell carcinoma Planned to be started on chemotherapy for T-cell lymphoma Follows with oncology in [place] Palliative care consulted appreciate input SYMPTOMATIC BRADYCARDIA S/P pacemaker stable GERD: continue PPI HLP: continue statin DEPRESSION Continue Lexapro SKIN LESION ON BACK Secondary to scratching /skin infiltration of T-cell lymphoma Added as needed Benadryl cream continue Keflex DVT Px: Moderate to high risk Subcu Lovenox ordered Code Status Full Code Disposition Plan for discharge home tomorrow Appreciate help and input from director case Will fax document to Dr. Waterman once discharge ( ) Vital Signs: Date Time Temp Pulse Resp B/P (MAP) Pulse Ox O2 Delivery O2 Flow Rate FiO2 07/18/17 11:15 36.6 68 18 127/63 (84) 97 Room Air 07/18/17 11:04 71 16 95 Room Air 07/18/17 10:10 Room Air 07/18/17 07:19 65 16 96 Room Air 07/18/17 07:17 37.1 68 18 120/57 (78) 96 Room Air 07/18/17 04:02 37.1 78 18 123/66 (85) 93 Room Air 07/17/17 23:59 Room Air 07/17/17 23:04 36.6 83 18 104/52 (69) 93 Room Air 07/17/17 19:19 72 16 95 Room Air 07/17/17 18:51 36.9 79 18 122/65 (84) 91 Room Air 07/17/17 16:00 Room Air 07/17/17 15:42 36.8 69 22 108/56 (73) 97 07/17/17 15:38 74 16 95 Room Air 07/17/17 12:08 36.6 68 18 125/57 (79) 94 Lab Results:
[2017-07-17] MEDS: SIMVASTATIN 20 MG TAB PO SCH (20:15)
[2017-07-18] VITALS (8 sets, daily range): BP systolic 109–127; BP diastolic 48–66; PULSE 65–82; TEMP 36.6–37.1; O2SAT 93–97
[2017-07-18] MEDS ORDERED: CSD50 PO (04:05)
[2017-07-18] MEDS: ALBUT/IPRATROP 3MG/0.5MG NEB 3 ML VIAL INH SCH ×3 (07:19→14:41)
[2017-07-18] MEDS: ISOSORBIDE MONONITRATE 30 MG TABCR PO SCH (08:51)
[2017-07-18] MEDS: CEPHALEXIN MONOHYDRATE 500 MG CAP PO SCH (08:51)
[2017-07-18] MEDS: BUDESONIDE/FORMOTEROL FUMARATE 160/4.5 60 PUFFS/INHALER INH SCH (08:51)
[2017-07-18] MEDS: ESCITALOPRAM OXALATE 10 MG TAB PO SCH (08:51)
[2017-07-18] MEDS: PANTOprazole SOD 40 MG TAB PO SCH (08:51)
[2017-07-18] MEDS: CETIRIZINE HCL 10 MG TAB PO SCH (08:52)
[2017-07-18] MEDS: ENOXAPARIN 40 MG/0.4 ML SYR SQ SCH (08:52)
[2017-07-18] MEDS: BICALUTAMIDE 50 MG TAB PO SCH (08:53)
--- NOTE | 2017-07-18 11:35 | Discharge Instructions ---
Discharge Instructions Date of Service Jul 18, 2017. Admission Reason for Admission: Metastatic Malignant Neoplasm To Prostate, Discharge Discharge Diagnosis / Problem: METASTATIC PROSTATE CA/T CELL LYMPHOMA Discharge Goals Goal(s): Decrease discomfort, Improve disease control, Therapeutic intervention Activity Recommendations Activity Limitations: as noted below ( TOLERATED ) . Instructions / Follow-Up Instructions / Follow-Up HOSPITAL FOLLOW UP : 07/25/2017 11:40 AM Alton Cuellar MD Internal Medicine [facility] FOLLOW UP WITH UROLOGY DR MARLEY IN A MONTH FOR CHANGE OF SUPRAPUBIC CATHETER AND LUPRON INJECTION FOLLOW UP WITH DR WATERMAN -APPOINTMENT SCHEDULED ON JulySunday @ 3:30 PM BLOOD WORK: COMPLETE BLOOD COUNT/COMPLETE METABOLIC PANEL WEEKLY NEXT LAB DRAW ON 07/25/17 PLEASE FAX THE LAB REPORT TO Dr. Leonor Waterman MEDICAL ONCOLOGIST [facility] ESC[facility] Address: [address] [place] [address] FAX NO : [phone] Current Hospital Diet Patient's current hospital diet: AHA Diet (Heart Healthy) Discharge Diet Recommended Diet: Regular Diet Procedures Procedures Performed: Open Suprapubic Cystotomy (18F catheter) Pending Studies Studies pending at discharge: no Medical Emergencies . Who to Call and When: Medical Emergencies: If at any time you feel your situation is an emergency, please call 911 immediately. . Non-Emergent Contact Non-Emergency issues call your: Primary Care Provider . . "Provider Documentation" section prepared by Fabiola Duque. .
[2017-07-18] MEDS ORDERED: CEPH500C2 PO (11:52)
[2017-07-18] MEDS ORDERED: POLYETHYLENE (MIRALAX) 17 GM PACK PO ONE (15:00)
[2017-07-18] MEDS ORDERED: BISACODYL 5 MG TABEC PO ONE (15:00)
[2017-07-18] MEDS ORDERED: BISACODYL 10 MG SUPP PR STA (15:06)
[2017-07-18] MEDS ORDERED: SOD PHOSPHATE/SOD BIPHOSPHATE ENEMA 132 ML BTL PR STA (15:06)
--- NOTE | 2017-07-18 15:08 | Discharge Summary ---
Discharge Summary Date of Service Jul 18, 2017. Discharge Summary Admission Date: Jul 14, 2017 at 19:37 Discharge Date: Jul 18, 2017 Discharge Disposition: Home with services Principal Diagnosis: METASTATIC PROSTATE CA/T CELL LYMPHOMA Procedures: Procedure(s) Performed open suprapubic cystotomy (18F catheter) Consultations: UROLOGY -DR MARLEY Medication Reconciliation New Medications: Bicalutamide (Bicalutamide) 50 Mg Tab 50 MG PO QAM for 30 Days, #30 TAB 2 Refills Changed Medications: Cephalexin Monohydrate (Keflex) 500 Mg Cap 500 MG PO BID for 21 Days, #42 CAP (Changed from: 60) 3 MORE WEEKS Continued Medications: Acetaminophen Tab (Tylenol) 325 Mg Tab 650 MG PO PRN, TAB Atenolol (Tenormin) 25 Mg Tab 25 MG PO DAILY, TAB Budesonide/Formoterol Fumarate (Symbicort 160/4.5 Inhaler ) Aero 1 PUFFS INH BID, INHALER Calcium/Vitamin D (Os-Tu 500 Plus D) Tab 1 TAB PO DAILY, TAB Carbamide Peroxide (Otic) (Debrox) 6.5 % Prema 5 DROPS OT HS for 3 DAYS PRIOR TO IRRIGATION, #15 ML Cetirizine Hcl (Cetirizine Hcl) 10 Mg Chw 10 MG PO DAILY Cholecalciferol (Vitamin D 1000 Unit) 1,000 Unit Cap 1000 INTER.UNIT PO DAILY, CAP Escitalopram (Lexapro) 10 Mg Tab 10 MG PO DAILY, TAB Hydrocortisone (Hydrocortisone) 90 Appln/30 Gm Cr 1 APPLN TOP DAILY for Affected Skin Folds for 7 Days, #60 GM Isosorbide Mononitrate Ext Rel (Imdur Ext Rel) 60 Mg Ertab 30 MG PO QAM, TAB Melatonin (Melatonin) 3 Mg Tab 9 MG PO QPM Nutritional Supplements (Ensure Clear) 1 Liq Liq 1 CAN PO BID Omeprazole (Prilosec) 20 Mg Capcr 20 MG PO BID, CAP Simvastatin (Zocor) 40 Mg Tab 20 MG PO QPM, TAB Tiotropium [place] (Spiriva Respimat) 2.5 Mcg/Act Spr 2 PUFF INH DAILY, INHALER Triamcinolone Acetonide (Topic (Triamcinolone Acet 0.025%) 0.025 % Oin 1 APPLN TOP BID PRN for ITCHY AREAS SCALP, GM 1 Refill Referrals At Discharge Follow up Referrals: Urologist Referral - Within a Month with Ross Marley M.D. Admission Information HPI (per Admitting provider): Patient is an 89-year-old male with past medical history of metastatic T-cell lymphoma, basal cell carcinoma, COPD, Symptomatic bradycardia S/P pacemaker, legally blind, GERD, BPH, HLP, Depression and other problems presents with history abdominal pain, nausea and vomiting, inability to urinate. Patient is a poor historian most of the history is obtained from the patient's daughter-in- law and from hospital records. As per the family patient has been complaining of abdominal pain associated with nausea and vomiting since 3 days duration. He states abdominal pain is suprapubic, left and right lower quadrant which is sharp cramping like, nonradiating, 9/10 intensity. Also reports having constipation since yesterday. Patient was having trouble urinating and complained of dysuria since today. Also had nausea and vomiting 4 times today. Patient family informed that patient has been having generalized weakness and he tires easily lately. He lost about 40-50 pounds in last 1 year. She follows with Dr. Natan castro for oncology and [facility] and is being planned to be started on chemotherapy. Denies any history of chest pain, SOB, dizziness, pedal edema, fever, chills, headache, blood in stools, hematuria. Physical Exam (per Admitting): General Appearance: no apparent distress, + thin, + pertinent finding ( Chronically ill-appearing) Head: normocephalic, atraumatic Eyes: normal inspection, PERRL, EOMI, sclerae normal, + pertinent finding ( Legally blind right greater than left) ENT: normal ENT inspection, + pertinent finding (Decreased hearing, uses hearing aids) Neck: supple, trachea midline Respiratory/Chest: chest non-tender, no respiratory distress, no accessory muscle use, + decreased breath sounds, + wheezing Cardiovascular: regular rate, rhythm, no edema, no murmur, + pertinent finding (Pacemaker on left side of the chest) Abdomen/GI: normal bowel sounds, soft, + tenderness (Suprapubic region, RLQ and LLQ) Back: normal inspection Extremities/Musculoskelatal: normal inspection, no pedal edema Neurologic/Psych: chief architect II-XII nml as tested, no motor/sensory deficits, alert , oriented x 3, + pertinent finding (Legally blind) Skin: normal color, + pertinent finding (Multiple skin skin lesions on right forehead and and back) Hospital Course No complain of discomfort no fever or chills stable to be discharged home to son and daughter in Law , home health arrangements done Hospital bed delivered from [place] did not had bowel movement since admission ordered for Dulculax tab /suppository if no result pt managed to have bowel movement PHYSICAL EXAM : Vital Signs-as noted below Exam: General- No acute distress Head- atraumatic Eyes- PERRL, EOMI ENT- oropharynx clear Neck- supple, no JVD Lungs- clear to auscultation Heart- regular rhythm; no murmur Abdomen- normal bowel sounds, soft Pelvis- Suprapubic cath in placed and draining clear urine Extremities- No calf tenderness Neuro- alert, oriented, PERRL, EOMI/legally blind Skin- warm & dry Lab data as noted below. Date Time Temp Pulse Resp B/P (MAP) Pulse Ox O2 Delivery O2 Flow Rate FiO2 07/18/17 14:42 73 16 96 Room Air 07/18/17 14:19 36.6 82 18 95 Room Air 07/18/17 13:42 82 95 07/18/17 11:15 36.6 68 18 127/63 (84) 97 Room Air 07/18/17 11:04 71 16 95 Room Air 07/18/17 10:10 Room Air DIFFUSE METASTATIC DISEASE/PROSTATE CANCER WITH OBSTRUCTIVE UROPATHY CT abd/pelvis showed a large heterogeneous mass within the deep pelvis which is contiguous with the right posterior prostate gland and obscures/obliterates the seminal vesicles The large mass within the deep pelvis results in the apparent bladder outlet obstruction with associated bilateral hydronephrosis. Urology on board S/P suprapubic catheter placement and draining clear urine Creatine remains 1.5 Denies any pain Very poor prognosis continue Casodex daily for indefinitely Follow up with [facility] [place] [facility] [place] [facility] in 1 month for suprapubic catheter change /monthly Lupron injection METASTATIC PROSTATE CANCER CT abd and pelvis suggests finding consistent with prostate ca PSA 91.5 Pt follows with Oncology Dr. WATERMAN in [place] Urology on boardp-appreciate input Continue bicalutamide/Casodex daily Initial dose of Lupron given in hospital Will need once a month dose at Urology office in [facility] out pt follow up with Urology in a month Case discussed with patient's outpatient oncology oncology dr. Waterman Pt will need weekly blood work: CBC /CMP -arrangements made for home health visiting nurse Discharge instructions Faxed to Dr Waterman office METASTATIC T-CELL LYMPHOMA Basal cell carcinoma Planned to be started on chemotherapy for T-cell lymphoma Follows with oncology in [place] Palliative care consulted appreciate input pt and family will consider palliative care after meeting with his Oncology as out pt SYMPTOMATIC BRADYCARDIA S/P pacemaker stable GERD: continue PPI HLP: continue statin DEPRESSION Continue Lexapro SKIN LESION ON BACK Secondary to scratching /skin infiltration of T-cell lymphoma Added as needed Benadryl cream-reports of some improvement of symptom continue Keflex for 3 more weeks DVT Px: Moderate to high risk Subcu Lovenox ordered Code Status Full Code Disposition stable to be discharged home with home health today , will stay with family step son and daughter in law Appreciate help and input from case management assistant Hospital bed delivered discharge instruction Faxed to Pt's primary care in [place] [facility] Documents Faxed to Dr. Waterman ( ) hospital follow up arranged with Dr Cuellar at [facility] next week Total time spent on discharge = 40 min This includes examination of the patient, discharge planning, medication reconciliation, and communication with other providers. Discharge Instructions Discharge Instructions Date of Service Jul 18, 2017. Admission Reason for Admission: Metastatic Malignant Neoplasm To Prostate, Discharge Discharge Diagnosis / Problem: METASTATIC PROSTATE CA/T CELL LYMPHOMA Discharge Goals Goal(s): Decrease discomfort, Improve disease control, Therapeutic intervention Activity Recommendations Activity Limitations: as noted below ( TOLERATED ) . Instructions / Follow-Up Instructions / Follow-Up HOSPITAL FOLLOW UP : 07/25/2017 11:40 AM Alton Cuellar MD Internal Medicine [facility] FOLLOW UP WITH UROLOGY DR MARLEY IN A MONTH FOR CHANGE OF SUPRAPUBIC CATHETER AND LUPRON INJECTION FOLLOW UP WITH DR WATERMAN -APPOINTMENT SCHEDULED ON JulySunday @ 3:30 PM BLOOD WORK: COMPLETE BLOOD COUNT/COMPLETE METABOLIC PANEL WEEKLY NEXT LAB DRAW ON 07/25/17 PLEASE FAX THE LAB REPORT TO Dr. Leonor Waterman MEDICAL ONCOLOGIST [facility] ESC[facility]AR Address: [address] [place] [address] FAX NO : [phone] Current Hospital Diet Patient's current hospital diet: AHA Diet (Heart Healthy) Discharge Diet Recommended Diet: Regular Diet Procedures Procedures Performed: Open Suprapubic Cystotomy (18F catheter) Pending Studies Studies pending at discharge: no Medical Emergencies . Who to Call and When: Medical Emergencies: If at any time you feel your situation is an emergency, please call 911 immediately. . Non-Emergent Contact Non-Emergency issues call your: Primary Care Provider . . "Provider Documentation" section prepared by Fabiola Duque. .
== END 2017-07-18 18:00 | disposition home health service (06) | DRG 715 ==
LOC: C.EDB 14:21 → C.2E 19:37 → CANBEDREQ 19:50 → ENRESERV 22:33 → C.4E 07-16 21:55
PROVIDERS: ADMIT Internal Medicine; ATTEND Hospitalist
PROC: 0T1 Urinary System, Bypass (ICD-10-PCS; principal; 2017-07-14 19:00)
DX: C61 Malignant neoplasm of prostate (principal); N13.8 Other obstructive and reflux uropathy; C85.90 Non-Hodgkin lymphoma, unspecified, unspecified site; N13.30 Unspecified hydronephrosis; E78.5 Hyperlipidemia, unspecified; F17.200 Nicotine dependence, unspecified, uncomplicated; J44.9 Chronic obstructive pulmonary disease, unspecified; H54.8 Legal blindness, as defined in USA; K21.9 Gastro-esophageal reflux disease without esophagitis; N40.0 Benign prostatic hyperplasia without lower urinary tract symptoms; F32.9 Major depressive disorder, single episode, unspecified; C44.91 Basal cell carcinoma of skin, unspecified; R00.1 Bradycardia, unspecified; L98.9 Disorder of the skin and subcutaneous tissue, unspecified; Z95.0 Presence of cardiac pacemaker; Z80.42 Family history of malignant neoplasm of prostate